=== PATIENT | female | born 1965 | race Caucasian/White ===

== ENCOUNTER 2016-06-23 10:30 | Emergency (ER) | payer OTHER ==
[2016-06-23 11:28] LABS: BASO # 0.1 K/mm3 (0.0-0.2); BASO % 0.5 % (0.0-1.0); EOS # 0.2 K/mm3 (0.0-0.50); EOS % 1.8 % (0.0-3.0); LARGE UNSTAINED CELL # 0.1 K/mm3 (0.0-0.4); LARGE UNSTAINED CELL % 0.6 % (0.0-4.0); LYMPH # 1.7 K/mm3 (1.5-4.5); LYMPH % 13.6 % (24.0-44.0); MEAN CORPUSCULAR HGB CONC 31.9 g/dl (32.0-36.5); MEAN CORPUSCULAR VOLUME 90.9 fl (80.0-96.0); MONO # 0.3 K/mm3 (0.0-0.8); MONO % 2.8 % (0.0-5.0); NEUTROPHILS # 9.9 K/mm3 (1.8-7.7); NEUTROPHILS % 80.7 % (36.0-66.0); PLATELET COUNT, AUTOMATED 387 k/mm3 (150-450); RED CELL DISTRIBUTION WIDTH 13.1 % (11.5-14.5); WHITE BLOOD COUNT 12.2 K/mm3 (4.0-10.0)
--- NOTE | 2016-06-23 11:55 | REP ---
Clinical: Acute abdominal pain. Technique: Upright view of the chest with supine and upright views of the abdomen and pelvis. Findings: Frontal upright view of the chest demonstrates blunting to the left diaphragmatic surface and costophrenic angle which may reflect small pleural effusion and atelectasis. No prior exams available for comparison. Supine and upright views of the abdomen and pelvis demonstrate nonspecific bowel gas pattern without obstruction or perforation. Surgical suture material noted in the left mid abdomen. No organomegaly. Left renal calculi cannot be excluded. Skeletal structures normal for age. Impression: Nonspecific bowel gas pattern. Cannot exclude small left pleural effusion and basilar atelectasis. Possible small left nephroliths. Signed by Gabriel Tracy MD 06/23/2016 11:47 A
[2016-06-23 12:00] LABS: ALBUMIN/GLOBULIN RATIO 1.14 (1.00-1.93); ALKALINE PHOSPHATASE 91 U/L (45-117); ALT/SGPT 41 U/L (12-78); AMYLASE 38 U/L (25-115); ANION GAP 7 MEQ/L (8-16); AST/SGOT 31 U/L (15-37); BILIRUBIN,DIRECT < 0.1 MG/DL (0.0-0.2); BILIRUBIN,TOTAL 0.3 MG/DL (0.2-1.0); BLOOD UREA NITROGEN 11 MG/DL (7-18); CALCIUM LEVEL 8.8 MG/DL (8.5-10.1); CARBON DIOXIDE LEVEL 27 MEQ/L (21-32); CHLORIDE LEVEL 110 MEQ/L (98-107); CREATININE FOR GFR 0.75 MG/DL (0.55-1.02); GLOMERULAR FILTRATION RATE > 60.0 (>51); GLUCOSE, FASTING 93 MG/DL (70-105); POTASSIUM SERUM 4.4 MEQ/L (3.5-5.1); SODIUM LEVEL 144 MEQ/L (136-145); TOTAL PROTEIN 7.5 GM/DL (6.4-8.2)
[2016-06-23] MEDS ORDERED: ISOVUE-370 76% 100ML VIAL (Q9967) As Ordered ONE (12:47)
--- NOTE | 2016-06-23 13:25 | REP ---
Clinical: Generalized acute abdominal pain. Technique: Axial contrast enhanced images from the lung bases to the pubic symphysis using 100 ml Isovue 370 intravenous contrast material with coronal and sagittal re-formations. Comparison: None. Findings: Lung bases demonstrate minimal chronic changes. Visualized heart and pericardium normal. Liver, spleen, pancreas, bilateral adrenal glands and kidneys are normal. The gallbladder is mildly distended and otherwise nonspecific. The bowel gas pattern is nonspecific and without obstruction or obvious acute inflammatory process. Postsurgical changes involving the stomach and small bowel is noted with presumed postsurgical ventral hernia/eventration. Scattered colonic diverticula noted. Normal terminal ileum and appendix identified in the right lower quadrant. Pelvis demonstrates normal bladder and age-appropriate uterus/adnexa with small intramural fibroid suggested. No pelvic fluid or ascites. Mildly prominent mesenteric lymph nodes measure up to approximately 9 mm. No discrete abdominal or pelvic mass lesion appreciated. Abdominal aorta and vasculature without aneurysm or dissection. Surrounding musculoskeletal structures demonstrate age-related degenerative changes. Impression: 1. Postsurgical changes involving the small bowel and anterior abdominal wall as well as evidence for prior gastric bypass surgery. Mesenteric lymph nodes up to 9 mm are nonspecific. 2. Mildly distended gallbladder is nonspecific. 3. No obvious acute intra-abdominal or pelvic pathology appreciated. No free fluid. No discrete mass lesion. Signed by Gabriel Tracy MD 06/23/2016 01:16 P
--- NOTE | 2016-06-23 14:47 | EDDOCDS ---
Physician Documentation [facility] Name: Amanda Davis Age: 50 yrs Sex: Female : 1965 Arrival Date: 06/23/2016 Time: 10:30 Bed I2 / M2 Private MD: Tanvir Galicia Abdul Disposition: 06/23/16 14:28 Discharged to Home/Self Care. Impression: Unspecified abdominal pain. - Condition is Stable. - Discharge Instructions: Abdominal Pain, Adult. - Medication Reconciliation, Local Pharmacy Hours form. - Follow up: Tanvir Galicia; When: Call to arrange an appointment; Reason: Continuance of care. Follow up: Davis Fajardo MD; When: As needed; Reason: Recheck today's complaints, To establish care. Follow up: Emergency Department; When: As needed; Reason: Fever > 102F, Worsening of conditions. - Problem is new. - Symptoms have improved. Historical: - Allergies: Morphine; - Home Meds: 1. tramadol 150 mg oral BP25 three times a day 2. levothyroxine 125 mcg Oral cap once daily 3. Xanax 1 mg Oral tab four times a day 4. Adderall XR 30 mg BID and 10 mg BID Oral cp24 5. Vitamin D Oral daily 6. vitamin B12 injection as needed - PMHx: Thyroid problem; Chronic Low Back Pain; ADHD; - PSHx: Gastric Bypass (2005); Bowel resection (2009); Hernia repair- Incisional; - Social history: Smoking status: Patient states was never smoker of tobacco. No barriers to communication noted, The patient speaks fluent [place], Speaks appropriately for age. - Family history: Not pertinent. - : The pt / caregiver states he / she is not on anticoagulants. Home medication list is obtained from the patient. - Exposure Risk Screening:: None identified. HOSPICE BEREAVEMENT COORDINATOR: 06/23 10:38 LMP N/A - Post-menopause kr3 Vital Signs: 10:31 BP 148 / 82; Pulse 82; Resp 18; Temp 97.8(O); Pulse Ox 100% on R/A; Weight 74.39 kg / ct3 164 lbs (M); Height 4 ft. 11 in. (149.86 cm) (R); Pain 6/10; 12:06 BP 148 / 71; Pulse 76; Resp 18; Temp 99.3(TE); Pulse Ox 98% on R/A; Pain 6/10; ar3 14:09 BP 116 / 68; Pulse 82; Resp 18; Temp 97.5(O); Pulse Ox 97% on R/A; Pain 7/10; ct3 14:33 BP 107 / 50; Pulse 77; Resp 18; Temp 98.4; Pulse Ox 97% ; Pain 5/10; jam1 10:31 Body Mass Index 33.12 (74.39 kg, 149.86 cm) ct3 MDM: 11:00 [facility] Payment Agreement was scanned into [employer] and attached to record. jp5 11:00 Financial registration complete. jp5 11:01 NOTHING BY MOUTH+DIET ordered. EDMS 11:02 Amylase Ordered. EDMS 11:02 Basic Metabolic Profile Ordered. EDMS 11:02 CBC with Diff Ordered. EDMS 11:02 Lipase Ordered. EDMS 11:02 Liver Profile Ordered. EDMS 11:02 Lactic Acid (Alexander tube on ice) Ordered. EDMS 11:02 Abdomen, Flat\E\Upright,PA Chest Ordered. EDMS 12:08 Basic Metabolic Profile Reviewed. ar2 12:08 CBC with Diff Reviewed. ar2 12:08 Amylase Reviewed. ar2 12:08 Lipase Reviewed. ar2 12:08 Liver Profile Reviewed. ar2 12:13 Lactic Acid (Alexander tube on ice) Reviewed. ar2 12:13 IV Saline Lock ordered. ar2 12:14 NS 0.9% 1000 ml IV at bolus once ordered. ar2 12:41 CT ABD & PELVIS: IV Contrast Only Ordered. EDMS 14:04 Vital Signs ordered. ar2 Administered Medications: 12:35 Drug: NS 0.9% 1000 ml [sodium chloride 0.9 % intravenous solution] Route: IV; Rate: kpj bolus; Site: right wrist; 14:46 Follow up: IV Status: Completed infusion; Infusion discontinued kpj Signatures: Dispatcher [employer] EDYusra Pena RN RN kpj Robie, Kathleen, RN RN kr3 Ravin Queen, PAPatty PABalwinderC ar2 [employer] jp5 The chart was reviewed and I authenticate all verbal orders and agree with the evaluation and treatment provided.Attachments: 11:00 [facility] Payment Agreement jp5 MTDD
--- NOTE | 2016-06-23 14:47 | EDDOCDS ---
Nurse's Notes [facility] Name: Amanda Davis Age: 50 yrs Sex: Female : 1965 Arrival Date: 06/23/2016 Time: 10:30 Bed I2 / M2 Private MD: Tanvir Galicia Abdul Diagnosis: Unspecified abdominal pain Presentation: 06/23 10:34 Presenting complaint: Patient states: abdominal pain for several days on and off. Had kr3 bowel movement today, but not yesterday. Feeling weak today. Risk factors: the patient reports no vaginal bleeding. Adult Sepsis Screening: The patient does not have new or worsening altered mentation. Patient's respiratory rate is less than 22. Systolic blood pressure is greater than 100. Patient has a qSOFA score of 0- Negative Sepsis Screen. Suicide/Homicide risk assessment- the patient denies having any suicidal and/or homicidal ideations and does not present with any other emotional, behavioral or mental health complaints. Status: Patient is not a service delivery supervisor or dependent. Transition of care: patient was not received from another setting of care. 10:34 Acuity: RAMY Level 3 kr3 10:34 Method Of Arrival: Walkin/Carried/Asstd kr3 Triage Assessment: 10:38 General: Appears uncomfortable, Behavior is cooperative. Pain: Location: abdomen Pain kr3 currently is 5 out of 10 on a pain scale. At worst was 7 out of 10 on a pain scale. Quality of pain is described as gas pain. HIV screening NA for this visit Offered previously. GI: Denies nausea, vomiting. Derm: Skin is normal. TALENT DEVELOPMENT SPECIALIST: 10:38 LMP N/A - Post-menopause kr3 Historical: - Allergies: Morphine; - Home Meds: 1. tramadol 150 mg oral BP25 three times a day 2. levothyroxine 125 mcg Oral cap once daily 3. Xanax 1 mg Oral tab four times a day 4. Adderall XR 30 mg BID and 10 mg BID Oral cp24 5. Vitamin D Oral daily 6. vitamin B12 injection as needed - PMHx: Thyroid problem; Chronic Low Back Pain; ADHD; - PSHx: Gastric Bypass (2005); Bowel resection (2009); Hernia repair- Incisional; - Social history: Smoking status: Patient states was never smoker of tobacco. No barriers to communication noted, The patient speaks fluent Lao, Speaks appropriately for age. - Family history: Not pertinent. - : The pt / caregiver states he / she is not on anticoagulants. Home medication list is obtained from the patient. - Exposure Risk Screening:: None identified. Screenin:30 Screening information is obtained from the patient. Fall risk: No risks identified. [facility] Assistance ADL's: requires no assistance with activities of daily living. Abuse/DV Screen: The patient / caregiver reports he/she is: not in a situation that causes fear, pain or injury. Nutritional screening: No deficits noted. Advance Directives: Currently, there is no health care proxy. There is no active DNR order. There is no living will. There is no Power of Medical Technologist Chemistry. Advance directive information has not previously been placed in an [facility] medical record. Further advance directive information is declined. home support is adequate. Assessment: 12:40 General: Appears in no apparent distress, well nourished, well groomed, Behavior is kpj appropriate for age, pleasant. Pain: Location: low back area and upper abdomen Pain currently is 6 out of 10 on a pain scale. Quality of pain is described as aching. Neurological: Level of Consciousness is awake, alert, Oriented to person, place, time. Respiratory: Airway is patent Respiratory effort is even, unlabored, Respiratory pattern is regular, symmetrical, Breath sounds are clear bilaterally. GI: Abdomen is obese, Bowel sounds present X 4 quads. Abd is soft X 4 quads Abd is tender to palpation in right upper quadrant and left upper quadrant. Derm: Skin is pink, warm & dry. Musculoskeletal: Circulation, motion, and sensation intact Capillary refill < 3 seconds in bilateral toes Range of motion intact in all extremities. Reports pain in low back area. 13:30 General: Appears comfortable, Behavior is appropriate for age. Pain: Location: low back kpj area and left upper quadrant and right upper quadrant Pain currently is 6 out of 10 on a pain scale. Neurological: Level of Consciousness is awake, alert. Respiratory: Airway is patent Respiratory effort is even, unlabored. GI: Reports upper abdominal pain, Pain is 6 out of 10 on a pain scale. Denies nausea, vomiting. Derm: Skin is pink, warm & dry. 14:43 General: Appears in no apparent distress, comfortable, Behavior is appropriate for age. kpj General: states abdominal pain has resolved,lower back still aches.. Pain: Location: low back area Pain currently is 6 out of 10 on a pain scale. Neurological: Level of Consciousness is awake, alert, Oriented to person, place, time. Respiratory: Airway is patent Respiratory effort is even, unlabored. GI: Denies nausea, vomiting, pain. Derm: Skin is pink, warm & dry. Vital Signs: 10:31 BP 148 / 82; Pulse 82; Resp 18; Temp 97.8(O); Pulse Ox 100% on R/A; Weight 74.39 kg ct3 (M); Height 4 ft. 11 in. (149.86 cm) (R); Pain 6/10; 12:06 BP 148 / 71; Pulse 76; Resp 18; Temp 99.3(TE); Pulse Ox 98% on R/A; Pain 6/10; ar3 14:09 BP 116 / 68; Pulse 82; Resp 18; Temp 97.5(O); Pulse Ox 97% on R/A; Pain 7/10; ct3 14:33 BP 107 / 50; Pulse 77; Resp 18; Temp 98.4; Pulse Ox 97% ; Pain 5/10; jam1 10:31 Body Mass Index 33.12 (74.39 kg, 149.86 cm) ct3 Vitals: 10:31 Log In Time: June 23, 2016 at 10:29. ct3 ED Course: 10:31 Patient visited by Vikki Blake PCA. ct3 10:31 Tanvir Galicia is Private Physician. ct3 10:31 Patient moved to Waiting ct3 10:32 Patient moved to Pre RCE ct3 10:35 Triage Initiated kr3 10:38 Patient moved to Triage 2 srm 10:42 [facility] ar2 10:42 Phong Bhatt MD is Attending Physician. ar2 10:42 Patient visited by Ravin Queen PA-C. ar2 11:00 [facility] was scanned into [employer] and attached to record. jp5 11:20 Patient moved to TR1 cj 11:22 Lactic Acid (Alexander tube on ice) Sent. ar3 11:22 Amylase Sent. ar3 11:22 Basic Metabolic Profile Sent. ar3 11:22 CBC with Diff Sent. ar3 11:22 Lipase Sent. ar3 11:22 Liver Profile Sent. ar3 12:01 Patient moved to PR1 / 25 ar3 12:06 Patient visited by Ashli Martin PCA. ar3 12:15 Patient moved to I2 / M2 ar3 12:30 Abdomen, Flat\E\Upright,PA Chest Returned. EDMS 12:35 Resting quietly. kpj 12:35 Inserted saline lock: 20 gauge in right wrist, tolerated well. kpj 12:[address] Scan. kpj 12:40 The patient / caregiver is instructed regarding the plan of care and ED course. Patient kpj has correct armband on for positive identification. Placed in gown. Call light in reach. Side rails up X2. Diet: Patient is NPO. 13:30 Resting quietly. kpj 13:30 IV is patent, is intact, is free of redness or swelling. solution is infusing as kpj ordered. 13:53 Patient visited by Faina Sood PCA. jam1 13:53 CT ABD & PELVIS: IV Contrast Only Returned. EDMS 14:10 Patient visited by Vikki Blake, CANDIDO. ct3 14:28 Tanvir Galicia is Referral Physician. ar2 14:28 Davis Fajardo MD is Referral Physician. ar2 14:43 Resting quietly. kpj 14:43 The patient / caregiver is instructed regarding the plan of care and ED course. kpj 14:43 Discontinued lock intact, bleeding controlled, pressure dressing applied, No kpj redness/swelling at site. No procedures done that require assistance. Administered Medications: 12:35 Drug: NS 0.9% 1000 ml [sodium chloride 0.9 % intravenous solution] Route: IV; Rate: kpj bolus; Site: right wrist; 14:46 Follow up: IV Status: Completed infusion; Infusion discontinued kpj Intake: 14:43 IV: 1000.00ml (NS); Total: 1000.00ml. kpj Order Results: Lab Order: Amylase; SPEC'M 06/23/16 11:19 Test: AMYLASE; Value: 38; Range: 25-115; Units: U/L; Status: F Lab Order: Basic Metabolic Profile; SPEC'M 06/23/16 11:19 Test: GLUCOSE, FASTING; Value: 93; Range: 70-105; Units: MG/DL; Status: F Test: BLOOD UREA NITROGEN; Value: 11; Range: 7-18; Units: MG/DL; Status: F Test: CREATININE FOR GFR; Value: 0.75; Range: 0.55-1.02; Units: MG/DL; Status: F Test: GLOMERULAR FILTRATION RATE; Value: > 60.0; Range: >51; Status: F Test: SODIUM LEVEL; Value: 144; Range: 136-145; Units: MEQ/L; Status: F Test: POTASSIUM SERUM; Value: 4.4; Range: 3.5-5.1; Units: MEQ/L; Status: F Test: CHLORIDE LEVEL; Value: 110; Range: 98-107; Abnormal: Above high normal; Units: MEQ/L; Status: F Test: CARBON DIOXIDE LEVEL; Value: 27; Range: 21-32; Units: MEQ/L; Status: F Test: ANION GAP; Value: 7; Range: 8-16; Abnormal: Below low normal; Units: MEQ/L; Status: F Test: CALCIUM LEVEL; Value: 8.8; Range: 8.5-10.1; Units: MG/DL; Status: F Test Note: ; Units are mL/min/1.73 m2 Chronic Kidney Disease Staging per NKF: Stage I & II GFR >=60 Normal to Mildly Decreased Stage III GFR 30-59 Moderately Decreased Stage IV GFR 15-29 Severely Decreased Stage V GFR <15 Very Little GFR Left ESRD GFR <15 on ADMINISTRATIVE EXECUTIVE Lab Order: CBC with Diff; SPEC'M 06/23/16 11:19 Test: WHITE BLOOD COUNT; Value: 12.2; Range: 4.0-10.0; Abnormal: Above high normal; Units: K/mm3; Status: F Test: RED BLOOD COUNT; Value: 5.26; Range: 4.00-5.40; Units: M/mm3; Status: F Test: HEMOGLOBIN; Value: 15.2; Range: 12.0-16.0; Units: g/dl; Status: F Test: HEMATOCRIT; Value: 47.9; Range: 36.0-47.0; Abnormal: Above high normal; Units: %; Status: F Test: MEAN CORPUSCULAR VOLUME; Value: 90.9; Range: 80.0-96.0; Units: fl; Status: F Test: MEAN CORPUSCULAR HEMOGLOBIN; Value: 29.0; Range: 27.0-33.0; Units: pg; Status: F Test: MEAN CORPUSCULAR HGB CONC; Value: 31.9; Range: 32.0-36.5; Abnormal: Below low normal; Units: g/dl; Status: F Test: RED CELL DISTRIBUTION WIDTH; Value: 13.1; Range: 11.5-14.5; Units: %; Status: F Test: PLATELET COUNT, AUTOMATED; Value: 387; Range: 150-450; Units: k/mm3; Status: F Test: NEUTROPHILS %; Value: 80.7; Range: 36.0-66.0; Abnormal: Above high normal; Units: %; Status: F Test: LYMPH %; Value: 13.6; Range: 24.0-44.0; Abnormal: Below low normal; Units: %; Status: F Test: MONO %; Value: 2.8; Range: 0.0-5.0; Units: %; Status: F Test: EOS %; Value: 1.8; Range: 0.0-3.0; Units: %; Status: F Test: BASO %; Value: 0.5; Range: 0.0-1.0; Units: %; Status: F Test: LARGE UNSTAINED CELL %; Value: 0.6; Range: 0.0-4.0; Units: %; Status: F Test: NEUTROPHILS #; Value: 9.9; Range: 1.8-7.7; Abnormal: Above high normal; Units: K/mm3; Status: F Test: LYMPH #; Value: 1.7; Range: 1.5-4.5; Units: K/mm3; Status: F Test: MONO #; Value: 0.3; Range: 0.0-0.8; Units: K/mm3; Status: F Test: EOS #; Value: 0.2; Range: 0.0-0.50; Units: K/mm3; Status: F Test: BASO #; Value: 0.1; Range: 0.0-0.2; Units: K/mm3; Status: F Test: LARGE UNSTAINED CELL #; Value: 0.1; Range: 0.0-0.4; Units: K/mm3; Status: F Lab Order: Lipase; SPEC'M 06/23/16 11:19 Test: LIPASE; Value: 166; Range: 73-393; Units: U/L; Status: F Lab Order: Liver Profile; SPEC'M 06/23/16 11:19 Test: AST/SGOT; Value: 31; Range: 15-37; Units: U/L; Status: F Test: ALT/SGPT; Value: 41; Range: 12-78; Units: U/L; Status: F Test: ALKALINE PHOSPHATASE; Value: 91; Range: 45-117; Units: U/L; Status: F Test: BILIRUBIN,TOTAL; Value: 0.3; Range: 0.2-1.0; Units: MG/DL; Status: F Test: BILIRUBIN,DIRECT; Value: < 0.1; Range: 0.0-0.2; Units: MG/DL; Status: F Test: TOTAL PROTEIN; Value: 7.5; Range: 6.4-8.2; Units: GM/DL; Status: F Test: ALBUMIN; Value: 4.0; Range: 3.2-5.2; Units: GM/DL; Status: F Test: ALBUMIN/GLOBULIN RATIO; Value: 1.14; Range: 1.00-1.93; Status: F Lab Order: Lactic Acid (Alexander tube on ice); SPEC'M 06/23/16 11:19 Test: LACTIC ACID SEPSIS PROTOCOL; Value: 2.3; Range: 0.4-2.0; Abnormal: Above upper panic limits; Units: MMOL/L; Status: F Radiology Order: Abdomen, Flat\E\Upright,PA Chest Test: Abdomen, Flat\E\Upright,PA Chest REASON FOR EXAMINATION: abdominal pain r/o obstruction; Clinical: Acute abdominal pain.; ; Technique: Upright view of the chest with supine and upright views of the; abdomen and pelvis.; ; Findings: Frontal upright view of the chest demonstrates blunting to the left; diaphragmatic surface and costophrenic angle which may reflect small pleural; effusion and atelectasis. No prior exams available for comparison. Supine and; upright views of the abdomen and pelvis demonstrate nonspecific bowel gas pattern; without obstruction or perforation. Surgical suture material noted in the left; mid abdomen. No organomegaly. Left renal calculi cannot be excluded. Skeletal; structures normal for age.; ; Impression:; Nonspecific bowel gas pattern.; Cannot exclude small left pleural effusion and basilar atelectasis.; Possible small left nephroliths.; ; ; Signed by; Gabriel Tracy MD 06/23/2016 11:47 A; Radiology Order: CT ABD & PELVIS: IV Contrast Only Test: CT ABD & PELVIS: IV Contrast Only REASON FOR EXAMINATION: + lactate, hx bypass;Abd. Pain - Generalized, Nn-focal Exa; Clinical: Generalized acute abdominal pain.; ; Technique: Axial contrast enhanced images from the lung bases to the pubic; symphysis using 100 ml Isovue 370 intravenous contrast material with coronal and; sagittal re-formations.; ; Comparison: None.; ; Findings:; Lung bases demonstrate minimal chronic changes. Visualized heart and pericardium; normal.; ; Liver, spleen, pancreas, bilateral adrenal glands and kidneys are normal. The; gallbladder is mildly distended and otherwise nonspecific. The bowel gas pattern; is nonspecific and without obstruction or obvious acute inflammatory process.; Postsurgical changes involving the stomach and small bowel is noted with presumed; postsurgical ventral hernia/eventration. Scattered colonic diverticula noted.; Normal terminal ileum and appendix identified in the right lower quadrant.; Pelvis demonstrates normal bladder and age-appropriate uterus/adnexa with small; intramural fibroid suggested. No pelvic fluid or ascites. Mildly prominent; mesenteric lymph nodes measure up to approximately 9 mm. No discrete abdominal; or pelvic mass lesion appreciated. Abdominal aorta and vasculature without; aneurysm or dissection. Surrounding musculoskeletal structures demonstrate; age-related degenerative changes.; ; Impression:; 1. Postsurgical changes involving the small bowel and anterior abdominal wall as; well as evidence for prior gastric bypass surgery. Mesenteric lymph nodes up to 9; mm are nonspecific.; 2. Mildly distended gallbladder is nonspecific.; 3. No obvious acute intra-abdominal or pelvic pathology appreciated. No free; fluid. No discrete mass lesion.; ; ; Signed by; Gabriel Tracy MD 06/23/2016 01:16 P; Outcome: 14:28 Discharge ordered by Provider. ar2 14:45 Discharge Assessment: Patient awake, alert and oriented x 3. No cognitive and/or kpj functional deficits noted. Patient verbalized understanding of disposition instructions. patient administered narcotics - no. The following High Risk Discharge criteria are identified: None. Discharged to home ambulatory, with friend. Condition: stable. Discharge instructions given to patient, Instructed on discharge instructions, follow up and referral plans. Demonstrated understanding of instructions, Pt was receptive of discharge instructions/ teaching. CT Study completed. Property sent home with patient. 14:46 Patient left the ED. edenilson Signatures: Dispatcher [employer] EDYusra Pena, Annie Blas RN RN RN [facility] Faina Sood, WEB DEVELOPER PROGRAMMER WEB DEVELOPER PROGRAMMER jam1 Astrid VickersRN RN kr3 Ravin Queen PA-C PAPatty ar2 Ashli Martin, WEB DEVELOPER PROGRAMMER WEB DEVELOPER PROGRAMMER ar3 Vikki Blake, WEB DEVELOPER PROGRAMMER WEB DEVELOPER PROGRAMMER ct3 Faina HugoRN SHAHANA [facility] [employer] jp5 MTDD
--- NOTE | 2016-06-25 15:46 | EDDOCDS ---
Physician Documentation [facility] Name: Amanda Davis Age: 50 yrs Sex: Female : 1965 Arrival Date: 06/23/2016 Time: 10:30 Bed I2 / M2 Private MD: Tanvir Galicia Abdul Disposition: 06/23/16 14:28 Discharged to Home/Self Care. Impression: Unspecified abdominal pain. - Condition is Stable. - Discharge Instructions: Abdominal Pain, Adult. - Medication Reconciliation, Local Pharmacy Hours form. - Follow up: aTnvir Galicia; When: Call to arrange an appointment; Reason: Continuance of care. Follow up: Davis Fajardo MD; When: As needed; Reason: Recheck today's complaints, To establish care. Follow up: Emergency Department; When: As needed; Reason: Fever > 102F, Worsening of conditions. - Problem is new. - Symptoms have improved. Historical: - Allergies: Morphine; - Home Meds: 1. tramadol 150 mg oral BP25 three times a day 2. levothyroxine 125 mcg Oral cap once daily 3. Xanax 1 mg Oral tab four times a day 4. Adderall XR 30 mg BID and 10 mg BID Oral cp24 5. Vitamin D Oral daily 6. vitamin B12 injection as needed - PMHx: Thyroid problem; Chronic Low Back Pain; ADHD; - PSHx: Gastric Bypass (2005); Bowel resection (2009); Hernia repair- Incisional; - Social history: Smoking status: Patient states was never smoker of tobacco. No barriers to communication noted, The patient speaks fluent Panamanian, Speaks appropriately for age. - Family history: Not pertinent. - : The pt / caregiver states he / she is not on anticoagulants. Home medication list is obtained from the patient. - Exposure Risk Screening:: None identified. 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 11 in. (149.86 cm) (R); Pain 6/10; 12:06 BP 148 / 71; Pulse 76; Resp 18; Temp 99.3(TE); Pulse Ox 98% on R/A; Pain 6/10; ar3 14:09 BP 116 / 68; Pulse 82; Resp 18; Temp 97.5(O); Pulse Ox 97% on R/A; Pain 7/10; ct3 14:33 BP 107 / 50; Pulse 77; Resp 18; Temp 98.4; Pulse Ox 97% ; Pain 5/10; jam1 10:31 Body Mass Index 33.12 (74.39 kg, 149.86 cm) ct3 MDM: 11:00 [facility] Payment Agreement was scanned into Modusly and attached to record. jp5 11:00 Financial registration complete. jp5 11:01 NOTHING BY MOUTH+DIET ordered. EDMS 11:02 Amylase Ordered. EDMS 11:02 Basic Metabolic Profile Ordered. EDMS 11:02 CBC with Diff Ordered. EDMS 11:02 Lipase Ordered. EDMS 11:02 Liver Profile Ordered. EDMS 11:02 Lactic Acid (Alexander tube on ice) Ordered. EDMS 11:02 Abdomen, Flat\E\Upright,PA Chest Ordered. EDMS 12:08 Basic Metabolic Profile Reviewed. ar2 12:08 CBC with Diff Reviewed. ar2 12:08 Amylase Reviewed. ar2 12:08 Lipase Reviewed. ar2 12:08 Liver Profile Reviewed. ar2 12:13 Lactic Acid (Alexander tube on ice) Reviewed. ar2 12:13 IV Saline Lock ordered. ar2 12:14 NS 0.9% 1000 ml IV at bolus once ordered. ar2 12:41 CT ABD & PELVIS: IV Contrast Only Ordered. EDMS 14:04 Vital Signs ordered. ar2 06/24 09:56 T-Sheet-- Draft Copy was scanned into Modusly and attached to record. klr 14:19 Radiology Report was scanned into Modusly and attached to record. gb Administered Medications: 06/23 12:35 Drug: NS 0.9% 1000 ml [sodium chloride 0.9 % intravenous solution] Route: IV; Rate: kpj bolus; Site: right wrist; 14:46 Follow up: IV Status: Completed infusion; Infusion discontinued kpj Signatures: Dispatcher MedHost EDMS Yusra Chairez RN RN kpj Barnhardt, Gloria, Trevor Reg Astrid Bird RN RN kr3 Ravin Queen PA-C PA-C ar2 Seven Corea jp5 Risa Hernandez The chart was reviewed and I authenticate all verbal orders and agree with the evaluation and treatment provided.Attachments: 11:00 [facility] Payment Agreement jp5 06/24 09:56 T-Sheet-- Draft Copy klr Chart Complete MTDD
--- NOTE | 2016-06-25 15:46 | EDDOCDS ---
Physician Documentation [facility] Name: Amanda Davis Age: 50 yrs Sex: Female : 1965 Arrival Date: 06/23/2016 Time: 10:30 Bed I2 / M2 Private MD: Tanvir Galicia Abdul Disposition: 06/23/16 14:28 Discharged to Home/Self Care. Impression: Unspecified abdominal pain. - Condition is Stable. - Discharge Instructions: Abdominal Pain, Adult. - Medication Reconciliation, Local Pharmacy Hours form. - Follow up: Tanvir Galicia; When: Call to arrange an appointment; Reason: Continuance of care. Follow up: Davis Fajardo MD; When: As needed; Reason: Recheck today's complaints, To establish care. Follow up: Emergency Department; When: As needed; Reason: Fever > 102F, Worsening of conditions. - Problem is new. - Symptoms have improved. Historical: - Allergies: Morphine; - Home Meds: 1. tramadol 150 mg oral BP25 three times a day 2. levothyroxine 125 mcg Oral cap once daily 3. Xanax 1 mg Oral tab four times a day 4. Adderall XR 30 mg BID and 10 mg BID Oral cp24 5. Vitamin D Oral daily 6. vitamin B12 injection as needed - PMHx: Thyroid problem; Chronic Low Back Pain; ADHD; - PSHx: Gastric Bypass (2005); Bowel resection (2009); Hernia repair- Incisional; - Social history: Smoking status: Patient states was never smoker of tobacco. No barriers to communication noted, The patient speaks fluent Togolese, Speaks appropriately for age. - Family history: Not pertinent. - : The pt / caregiver states he / she is not on anticoagulants. Home medication list is obtained from the patient. - Exposure Risk Screening:: None identified. 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 11 in. (149.86 cm) (R); Pain 6/10; 12:06 BP 148 / 71; Pulse 76; Resp 18; Temp 99.3(TE); Pulse Ox 98% on R/A; Pain 6/10; ar3 14:09 BP 116 / 68; Pulse 82; Resp 18; Temp 97.5(O); Pulse Ox 97% on R/A; Pain 7/10; ct3 14:33 BP 107 / 50; Pulse 77; Resp 18; Temp 98.4; Pulse Ox 97% ; Pain 5/10; jam1 10:31 Body Mass Index 33.12 (74.39 kg, 149.86 cm) ct3 MDM: 11:00 [facility] Payment Agreement was scanned into TurnTide and attached to record. jp5 11:00 Financial registration complete. jp5 11:01 NOTHING BY MOUTH+DIET ordered. EDMS 11:02 Amylase Ordered. EDMS 11:02 Basic Metabolic Profile Ordered. EDMS 11:02 CBC with Diff Ordered. EDMS 11:02 Lipase Ordered. EDMS 11:02 Liver Profile Ordered. EDMS 11:02 Lactic Acid (Alexander tube on ice) Ordered. EDMS 11:02 Abdomen, Flat\E\Upright,PA Chest Ordered. EDMS 12:08 Basic Metabolic Profile Reviewed. ar2 12:08 CBC with Diff Reviewed. ar2 12:08 Amylase Reviewed. ar2 12:08 Lipase Reviewed. ar2 12:08 Liver Profile Reviewed. ar2 12:13 Lactic Acid (Alexander tube on ice) Reviewed. ar2 12:13 IV Saline Lock ordered. ar2 12:14 NS 0.9% 1000 ml IV at bolus once ordered. ar2 12:41 CT ABD & PELVIS: IV Contrast Only Ordered. EDMS 14:04 Vital Signs ordered. ar2 06/24 09:56 T-Sheet-- Draft Copy was scanned into TurnTide and attached to record. klr 14:19 Radiology Report was scanned into TurnTide and attached to record. gb Administered Medications: 06/23 12:35 Drug: NS 0.9% 1000 ml [sodium chloride 0.9 % intravenous solution] Route: IV; Rate: kpj bolus; Site: right wrist; 14:46 Follow up: IV Status: Completed infusion; Infusion discontinued kpj Signatures: Dispatcher MedHost EDMS Yusra Chairez RN RN kpj Barnhardt, Gloria, Trevor Reg Astrid Bird RN RN kr3 Ravin Queen PA-C PA-C ar2 Seven Corea jp5 Risa Hernandez The chart was reviewed and I authenticate all verbal orders and agree with the evaluation and treatment provided.Attachments: 11:00 [facility] Payment Agreement jp5 06/24 09:56 T-Sheet-- Draft Copy klr Chart Complete MTDD
--- NOTE | 2016-06-25 15:47 | EDDOCDS ---
Nurse's Notes [facility] Name: Amanda Davis Age: 50 yrs Sex: Female : 1965 Arrival Date: 06/23/2016 Time: 10:30 Bed I2 / M2 Private MD: Tanvir Galicia Abdul Diagnosis: Unspecified abdominal pain Presentation: 06/23 10:34 Presenting complaint: Patient states: abdominal pain for several days on and off. Had kr3 bowel movement today, but not yesterday. Feeling weak today. Risk factors: the patient reports no vaginal bleeding. Adult Sepsis Screening: The patient does not have new or worsening altered mentation. Patient's respiratory rate is less than 22. Systolic blood pressure is greater than 100. Patient has a qSOFA score of 0- Negative Sepsis Screen. Suicide/Homicide risk assessment- the patient denies having any suicidal and/or homicidal ideations and does not present with any other emotional, behavioral or mental health complaints. Status: Patient is not a industrial service technician or dependent. Transition of care: patient was not received from another setting of care. 10:34 Acuity: RAMY Level 3 kr3 10:34 Method Of Arrival: Walkin/Carried/Asstd kr3 Triage Assessment: 10:38 General: Appears uncomfortable, Behavior is cooperative. Pain: Location: abdomen Pain kr3 currently is 5 out of 10 on a pain scale. At worst was 7 out of 10 on a pain scale. Quality of pain is described as gas pain. HIV screening NA for this visit Offered previously. GI: Denies nausea, vomiting. Derm: Skin is normal. 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 tramadol 150 mg oral BP25 three times a day 2. levothyroxine 125 mcg Oral cap once daily 3. Xanax 1 mg Oral tab four times a day 4. Adderall XR 30 mg BID and 10 mg BID Oral cp24 5. Vitamin D Oral daily 6. vitamin B12 injection as needed - PMHx: Thyroid problem; Chronic Low Back Pain; ADHD; - PSHx: Gastric Bypass (2005); Bowel resection (2009); Hernia repair- Incisional; - Social history: Smoking status: Patient states was never smoker of tobacco. No barriers to communication noted, The patient speaks fluent Portuguese, Speaks appropriately for age. - Family history: Not pertinent. - : The pt / caregiver states he / she is not on anticoagulants. Home medication list is obtained from the patient. - Exposure Risk Screening:: None identified. Screenin:30 Screening information is obtained from the patient. Fall risk: No risks identified. [facility] Assistance ADL's: requires no assistance with activities of daily living. Abuse/DV Screen: The patient / caregiver reports he/she is: not in a situation that causes fear, pain or injury. Nutritional screening: No deficits noted. Advance Directives: Currently, there is no health care proxy. There is no active DNR order. There is no living will. There is no Power of Auto Fleet Manager. Advance directive information has not previously been placed in an [facility] medical record. Further advance directive information is declined. home support is adequate. Assessment: 12:40 General: Appears in no apparent distress, well nourished, well groomed, Behavior is kpj appropriate for age, pleasant. Pain: Location: low back area and upper abdomen Pain currently is 6 out of 10 on a pain scale. Quality of pain is described as aching. Neurological: Level of Consciousness is awake, alert, Oriented to person, place, time. Respiratory: Airway is patent Respiratory effort is even, unlabored, Respiratory pattern is regular, symmetrical, Breath sounds are clear bilaterally. GI: Abdomen is obese, Bowel sounds present X 4 quads. Abd is soft X 4 quads Abd is tender to palpation in right upper quadrant and left upper quadrant. Derm: Skin is pink, warm & dry. Musculoskeletal: Circulation, motion, and sensation intact Capillary refill < 3 seconds in bilateral toes Range of motion intact in all extremities. Reports pain in low back area. 13:30 General: Appears comfortable, Behavior is appropriate for age. Pain: Location: low back kpj area and left upper quadrant and right upper quadrant Pain currently is 6 out of 10 on a pain scale. Neurological: Level of Consciousness is awake, alert. Respiratory: Airway is patent Respiratory effort is even, unlabored. GI: Reports upper abdominal pain, Pain is 6 out of 10 on a pain scale. Denies nausea, vomiting. Derm: Skin is pink, warm & dry. 14:43 General: Appears in no apparent distress, comfortable, Behavior is appropriate for age. kpj General: states abdominal pain has resolved,lower back still aches.. Pain: Location: low back area Pain currently is 6 out of 10 on a pain scale. Neurological: Level of Consciousness is awake, alert, Oriented to person, place, time. Respiratory: Airway is patent Respiratory effort is even, unlabored. GI: Denies nausea, vomiting, pain. Derm: Skin is pink, warm & dry. Vital Signs: 10:31 BP 148 / 82; Pulse 82; Resp 18; Temp 97.8(O); Pulse Ox 100% on R/A; Weight 74.39 kg ct3 (M); Height 4 ft. 11 in. (149.86 cm) (R); Pain 6/10; 12:06 BP 148 / 71; Pulse 76; Resp 18; Temp 99.3(TE); Pulse Ox 98% on R/A; Pain 6/10; ar3 14:09 BP 116 / 68; Pulse 82; Resp 18; Temp 97.5(O); Pulse Ox 97% on R/A; Pain 7/10; ct3 14:33 BP 107 / 50; Pulse 77; Resp 18; Temp 98.4; Pulse Ox 97% ; Pain 5/10; jam1 10:31 Body Mass Index 33.12 (74.39 kg, 149.86 cm) ct3 Vitals: 10:31 Log In Time: June 23, 2016 at 10:29. ct3 ED Course: 10:31 Patient visited by Vikki Blake PCA. ct3 10:31 Tanvir Galicia is Private Physician. ct3 10:31 Patient moved to Waiting ct3 10:32 Patient moved to Pre RCE ct3 10:35 Triage Initiated kr3 10:38 Patient moved to Triage 2 srm 10:42 [facility] ar2 10:42 Phong Bhatt MD is Attending Physician. ar2 10:42 Patient visited by Ravin Queen PA-C. ar2 11:00 [facility] Payment Agreement was scanned into Angelantoni and attached to record. jp5 11:20 Patient moved to TR1 cj 11:22 Lactic Acid (Alexander tube on ice) Sent. ar3 11:22 Amylase Sent. ar3 11:22 Basic Metabolic Profile Sent. ar3 11:22 CBC with Diff Sent. ar3 11:22 Lipase Sent. ar3 11:22 Liver Profile Sent. ar3 12:01 Patient moved to PR1 / 25 ar3 12:06 Patient visited by Ashli Martin PCA. ar3 12:15 Patient moved to I2 / M2 ar3 12:30 Abdomen, Flat\E\Upright,PA Chest Returned. EDMS 12:35 Resting quietly. kpj 12:35 Inserted saline lock: 20 gauge in right wrist, tolerated well. kpj 12:[address] Scan. kpj 12:40 The patient / caregiver is instructed regarding the plan of care and ED course. Patient kpj has correct armband on for positive identification. Placed in gown. Call light in reach. Side rails up X2. Diet: Patient is NPO. 13:30 Resting quietly. kpj 13:30 IV is patent, is intact, is free of redness or swelling. solution is infusing as kpj ordered. 13:53 Patient visited by aFina Sood PCA. jam1 13:53 CT ABD & PELVIS: IV Contrast Only Returned. EDMS 14:10 Patient visited by Vikki Blake, CANDIDO. ct3 14:28 Tanvir Galicia is Referral Physician. ar2 14:28 Davis Fajardo MD is Referral Physician. ar2 14:43 Resting quietly. kpj 14:43 The patient / caregiver is instructed regarding the plan of care and ED course. kpj 14:43 Discontinued lock intact, bleeding controlled, pressure dressing applied, No kpj redness/swelling at site. No procedures done that require assistance. 06/24 09:56 T-Sheet-- Draft Copy was scanned into Angelantoni and attached to record. klr 14:19 Radiology Report was scanned into Angelantoni and attached to record. gb Administered Medications: 06/23 12:35 Drug: NS 0.9% 1000 ml [sodium chloride 0.9 % intravenous solution] Route: IV; Rate: kpj bolus; Site: right wrist; 14:46 Follow up: IV Status: Completed infusion; Infusion discontinued kpj Intake: 14:43 IV: 1000.00ml (NS); Total: 1000.00ml. kpj Order Results: Lab Order: Amylase; SPEC'M 06/23/16 11:19 Test: AMYLASE; Value: 38; Range: 25-115; Units: U/L; Status: F Lab Order: Basic Metabolic Profile; SPEC'M 06/23/16 11:19 Test: GLUCOSE, FASTING; Value: 93; Range: 70-105; Units: MG/DL; Status: F Test: BLOOD UREA NITROGEN; Value: 11; Range: 7-18; Units: MG/DL; Status: F Test: CREATININE FOR GFR; Value: 0.75; Range: 0.55-1.02; Units: MG/DL; Status: F Test: GLOMERULAR FILTRATION RATE; Value: > 60.0; Range: >51; Status: F Test: SODIUM LEVEL; Value: 144; Range: 136-145; Units: MEQ/L; Status: F Test: POTASSIUM SERUM; Value: 4.4; Range: 3.5-5.1; Units: MEQ/L; Status: F Test: CHLORIDE LEVEL; Value: 110; Range: 98-107; Abnormal: Above high normal; Units: MEQ/L; Status: F Test: CARBON DIOXIDE LEVEL; Value: 27; Range: 21-32; Units: MEQ/L; Status: F Test: ANION GAP; Value: 7; Range: 8-16; Abnormal: Below low normal; Units: MEQ/L; Status: F Test: CALCIUM LEVEL; Value: 8.8; Range: 8.5-10.1; Units: MG/DL; Status: F Test Note: ; Units are mL/min/1.73 m2 Chronic Kidney Disease Staging per NKF: Stage I & II GFR >=60 Normal to Mildly Decreased Stage III GFR 30-59 Moderately Decreased Stage IV GFR 15-29 Severely Decreased Stage V GFR <15 Very Little GFR Left ESRD GFR <15 on ALODIZE MACHINE OPERATOR Lab Order: CBC with Diff; SPEC'M 06/23/16 11:19 Test: WHITE BLOOD COUNT; Value: 12.2; Range: 4.0-10.0; Abnormal: Above high normal; Units: K/mm3; Status: F Test: RED BLOOD COUNT; Value: 5.26; Range: 4.00-5.40; Units: M/mm3; Status: F Test: HEMOGLOBIN; Value: 15.2; Range: 12.0-16.0; Units: g/dl; Status: F Test: HEMATOCRIT; Value: 47.9; Range: 36.0-47.0; Abnormal: Above high normal; Units: %; Status: F Test: MEAN CORPUSCULAR VOLUME; Value: 90.9; Range: 80.0-96.0; Units: fl; Status: F Test: MEAN CORPUSCULAR HEMOGLOBIN; Value: 29.0; Range: 27.0-33.0; Units: pg; Status: F Test: MEAN CORPUSCULAR HGB CONC; Value: 31.9; Range: 32.0-36.5; Abnormal: Below low normal; Units: g/dl; Status: F Test: RED CELL DISTRIBUTION WIDTH; Value: 13.1; Range: 11.5-14.5; Units: %; Status: F Test: PLATELET COUNT, AUTOMATED; Value: 387; Range: 150-450; Units: k/mm3; Status: F Test: NEUTROPHILS %; Value: 80.7; Range: 36.0-66.0; Abnormal: Above high normal; Units: %; Status: F Test: LYMPH %; Value: 13.6; Range: 24.0-44.0; Abnormal: Below low normal; Units: %; Status: F Test: MONO %; Value: 2.8; Range: 0.0-5.0; Units: %; Status: F Test: EOS %; Value: 1.8; Range: 0.0-3.0; Units: %; Status: F Test: BASO %; Value: 0.5; Range: 0.0-1.0; Units: %; Status: F Test: LARGE UNSTAINED CELL %; Value: 0.6; Range: 0.0-4.0; Units: %; Status: F Test: NEUTROPHILS #; Value: 9.9; Range: 1.8-7.7; Abnormal: Above high normal; Units: K/mm3; Status: F Test: LYMPH #; Value: 1.7; Range: 1.5-4.5; Units: K/mm3; Status: F Test: MONO #; Value: 0.3; Range: 0.0-0.8; Units: K/mm3; Status: F Test: EOS #; Value: 0.2; Range: 0.0-0.50; Units: K/mm3; Status: F Test: BASO #; Value: 0.1; Range: 0.0-0.2; Units: K/mm3; Status: F Test: LARGE UNSTAINED CELL #; Value: 0.1; Range: 0.0-0.4; Units: K/mm3; Status: F Lab Order: Lipase; SPEC'M 06/23/16 11:19 Test: LIPASE; Value: 166; Range: 73-393; Units: U/L; Status: F Lab Order: Liver Profile; SPEC'M 06/23/16 11:19 Test: AST/SGOT; Value: 31; Range: 15-37; Units: U/L; Status: F Test: ALT/SGPT; Value: 41; Range: 12-78; Units: U/L; Status: F Test: ALKALINE PHOSPHATASE; Value: 91; Range: 45-117; Units: U/L; Status: F Test: BILIRUBIN,TOTAL; Value: 0.3; Range: 0.2-1.0; Units: MG/DL; Status: F Test: BILIRUBIN,DIRECT; Value: < 0.1; Range: 0.0-0.2; Units: MG/DL; Status: F Test: TOTAL PROTEIN; Value: 7.5; Range: 6.4-8.2; Units: GM/DL; Status: F Test: ALBUMIN; Value: 4.0; Range: 3.2-5.2; Units: GM/DL; Status: F Test: ALBUMIN/GLOBULIN RATIO; Value: 1.14; Range: 1.00-1.93; Status: F Lab Order: Lactic Acid (Alexander tube on ice); SPEC'M 06/23/16 11:19 Test: LACTIC ACID SEPSIS PROTOCOL; Value: 2.3; Range: 0.4-2.0; Abnormal: Above upper panic limits; Units: MMOL/L; Status: F Radiology Order: Abdomen, Flat\E\Upright,PA Chest Test: Abdomen, Flat\E\Upright,PA Chest REASON FOR EXAMINATION: abdominal pain r/o obstruction; Clinical: Acute abdominal pain.; ; Technique: Upright view of the chest with supine and upright views of the; abdomen and pelvis.; ; Findings: Frontal upright view of the chest demonstrates blunting to the left; diaphragmatic surface and costophrenic angle which may reflect small pleural; effusion and atelectasis. No prior exams available for comparison. Supine and; upright views of the abdomen and pelvis demonstrate nonspecific bowel gas pattern; without obstruction or perforation. Surgical suture material noted in the left; mid abdomen. No organomegaly. Left renal calculi cannot be excluded. Skeletal; structures normal for age.; ; Impression:; Nonspecific bowel gas pattern.; Cannot exclude small left pleural effusion and basilar atelectasis.; Possible small left nephroliths.; ; ; Signed by; Gabriel Tracy MD 06/23/2016 11:47 A; Radiology Order: CT ABD & PELVIS: IV Contrast Only Test: CT ABD & PELVIS: IV Contrast Only REASON FOR EXAMINATION: + lactate, hx bypass;Abd. Pain - Generalized, Nn-focal Exa; Clinical: Generalized acute abdominal pain.; ; Technique: Axial contrast enhanced images from the lung bases to the pubic; symphysis using 100 ml Isovue 370 intravenous contrast material with coronal and; sagittal re-formations.; ; Comparison: None.; ; Findings:; Lung bases demonstrate minimal chronic changes. Visualized heart and pericardium; normal.; ; Liver, spleen, pancreas, bilateral adrenal glands and kidneys are normal. The; gallbladder is mildly distended and otherwise nonspecific. The bowel gas pattern; is nonspecific and without obstruction or obvious acute inflammatory process.; Postsurgical changes involving the stomach and small bowel is noted with presumed; postsurgical ventral hernia/eventration. Scattered colonic diverticula noted.; Normal terminal ileum and appendix identified in the right lower quadrant.; Pelvis demonstrates normal bladder and age-appropriate uterus/adnexa with small; intramural fibroid suggested. No pelvic fluid or ascites. Mildly prominent; mesenteric lymph nodes measure up to approximately 9 mm. No discrete abdominal; or pelvic mass lesion appreciated. Abdominal aorta and vasculature without; aneurysm or dissection. Surrounding musculoskeletal structures demonstrate; age-related degenerative changes.; ; Impression:; 1. Postsurgical changes involving the small bowel and anterior abdominal wall as; well as evidence for prior gastric bypass surgery. Mesenteric lymph nodes up to 9; mm are nonspecific.; 2. Mildly distended gallbladder is nonspecific.; 3. No obvious acute intra-abdominal or pelvic pathology appreciated. No free; fluid. No discrete mass lesion.; ; ; Signed by; Gabriel Tracy MD 06/23/2016 01:16 P; Outcome: 14:28 Discharge ordered by Provider. ar2 14:45 Discharge Assessment: Patient awake, alert and oriented x 3. No cognitive and/or kpj functional deficits noted. Patient verbalized understanding of disposition instructions. patient administered narcotics - no. The following High Risk Discharge criteria are identified: None. Discharged to home ambulatory, with friend. Condition: stable. Discharge instructions given to patient, Instructed on discharge instructions, follow up and referral plans. Demonstrated understanding of instructions, Pt was receptive of discharge instructions/ teaching. CT Study completed. Property sent home with patient. 14:46 Patient left the ED. [facility] Signatures: Dispatcher MedHost EDMS Yusra Chairez, RN SHAHANA Annie Pop RN RN Faina Fiore, IT ACCOUNT MANAGER IT ACCOUNT MANAGER jam1 Perla Daniel, Reg Reg gb Astrid Vickers,RN RN kr3 Ravin Queen, KSENIA PAPatty ar2 Ashli Martin, IT ACCOUNT MANAGER IT ACCOUNT MANAGER ar3 Vikki Blake, IT ACCOUNT MANAGER IT ACCOUNT MANAGER ct3 Faina Hugo,RN RN Seven Vásquez Kathie klr Chart Complete [facility]
== END 2016-06-23 14:46 | disposition home or self-care (01) ==
LOC: M ED 10:30
DX: R10.84 Generalized abdominal pain (principal); M54.9 Dorsalgia, unspecified; F90.9 Attention-deficit hyperactivity disorder, unspecified type; E07.9 Disorder of thyroid, unspecified; Z79.899 Other long term (current) drug therapy; Z79.891 Long term (current) use of opiate analgesic; Z88.5 Allergy status to narcotic agent; Z98.84 Bariatric surgery status
CPT/HCPCS: 74022; 74177; 80048; 80076; 82150; 83605; 83690; 85025; 96360; 96361; 99284; Q9967

== ENCOUNTER → 2018-09-11 | Outpatient (REF) | payer OTHER ==
[~2018-09-11] MED LIST: ALPR1TAB3; AMPHET/DEXTR; LEVO150T7; NITR100C2; NORC1TAB7 PO; PHEN-501; TRAM50TA2; VITA500045
== END ==
LOC: M LAB REF 15:06
PROVIDERS: ATTEND Physician Assistant Medical
DX: N39.0 Urinary tract infection, site not specified (principal)

== ENCOUNTER 2018-09-12 13:14 | Emergency (ER) | payer OTHER ==
[~2018-09-12] VITALS: Ht 149.9 cm; Wt 61.4 kg
[2018-09-12] MEDS ORDERED: ONDANSETRON 4MG/2ML VIAL (J2405) IV ONE (13:30)
[2018-09-12] MEDS ORDERED: KETOROLAC 30 MG/ML VIAL (J1885) IV ONE (13:30)
[2018-09-12] MEDS ORDERED: NITR100C2 (13:33)
[2018-09-12] MEDS ORDERED: ALPR1TAB3 (13:33)
[2018-09-12] MEDS ORDERED: PHEN-501 (13:33)
[2018-09-12] MEDS ORDERED: AMPHET/DEXTR (13:33)
[2018-09-12] MEDS ORDERED: TRAM50TA2 (13:33)
[2018-09-12] MEDS ORDERED: LEVO150T7 (13:33)
[2018-09-12] MEDS ORDERED: VITA500045 (13:33)
[2018-09-12 13:51] LABS: BASO # 0.1 10^3/uL (0.0-0.2); BASO % 0.5 % (0.0-1.0); EOS # 0.1 10^3/uL (0.0-0.50); EOS % 0.4 % (0.0-3.0); HEMOGLOBIN 14.5 g/dl (12.0-15.5); LYMPH # 1.4 10^3/uL (1.5-4.5); MEAN CORPUSCULAR HGB CONC 33.7 g/dl (32.0-36.5); MONO # 0.7 10^3/uL (0.0-0.8); MONO % 4.9 % (0.0-5.0); NEUTROPHILS # 11.8 10^3/uL (1.8-7.7); NEUTROPHILS % 83.8 % (36.0-66.0); PLATELET COUNT, AUTOMATED 357 10^3/uL (150-450)
[2018-09-12 14:30] LABS: ALBUMIN 3.2 GM/DL (3.2-5.2); ALT/SGPT 83 U/L (12-78); BILIRUBIN,DIRECT < 0.1 MG/DL (0.0-0.2); BILIRUBIN,TOTAL 0.4 MG/DL (0.2-1.0); BLOOD UREA NITROGEN 15 MG/DL (7-18); CALCIUM LEVEL 8.8 MG/DL (8.5-10.1); CARBON DIOXIDE LEVEL 22 MEQ/L (21-32); CHLORIDE LEVEL 106 MEQ/L (98-107); CREATININE FOR GFR 0.73 MG/DL (0.55-1.30); GLOMERULAR FILTRATION RATE > 60.0 (>51); GLUCOSE, FASTING 99 MG/DL (70-100); LIPASE 135 U/L (73-393); POTASSIUM SERUM 4.5 MEQ/L (3.5-5.1); SODIUM LEVEL 137 MEQ/L (136-145); TOTAL PROTEIN 7.3 GM/DL (6.4-8.2)
--- NOTE | 2018-09-12 14:43 | REP ---
CT ABDOMEN AND PELVIS WITHOUT CONTRAST: CT abdomen and pelvis performed without oral or IV contrast. Sagittal and coronal reconstruction images are performed. No infiltrate is seen in the visualized lung bases. The liver is grossly unremarkable. There are gallstones in the gallbladder. The spleen, adrenals, pancreas and right kidney are grossly unremarkable. There is mild left hydroureteronephrosis caused by a 4 mm calculus at the left ureterovesical junction. There is a 4 mm intrarenal calculus in the lower pole of the left kidney. There is no abdominal aortic aneurysm. There is no adenopathy. There is no free air or free fluid. I seen on bowel wall thickening. There is no evidence of appendicitis. There is a small ventral hernia superiorly in the midline containing fat. There is diastasis of the rectus muscles. The patient has had prior gastric surgery. No pelvic mass is seen. There are mild degenerative changes of the spine. IMPRESSION: There is mild left hydroureteronephrosis caused by a 4 mm calculus at the left ureterovesical junction. There is also a 4 mm left intrarenal calculus in the lower pole of the left kidney. Note is made of gallstones in the gallbladder. Small ventral hernia anterior in the midline in the upper abdomen containing fat. No evidence of appendicitis. Electronically Signed by Ramy Alexander MD 09/13/2018 03:07 P
[2018-09-12 14:53] LABS: BILIRUBIN, URINE MANUAL OBSCURED (NEGATIVE); GLUCOSE, URINE (UA) MANUAL NEGATIVE (NEGATIVE); KETONE, URINE MANUAL OBSCURED mg/dL (NEGATIVE); UROBILINOGEN, URINE MANUAL OBSCURED mg/dl (NORMAL)
[2018-09-12 14:58] LABS: BACTERIA, URINE SMALL AMOUNT; CALCIUM OXALATE CRYSTALS,URINE SMALL AMOUNT /hpf; HYALINE CAST, URINE NONE SEEN /lpf (0-1); MUCUS, URINE SMALL AMOUNT (NEGATIVE); RBC, URINE 40-50 /hpf (0-3); SQUAMOUS EPITHELIAL CELL URINE MOD AMOUNT /hpf (SMALL AMT)
[2018-09-12] MEDS ORDERED: fentaNYL 100 MCG/2 ML INJECTION (J3010) IV ONE (15:00)
[2018-09-12] MEDS ORDERED: NORC1TAB7 PO (15:08)
[2018-09-12 15:32] VITALS: BP 124/75
== END 2018-09-12 15:41 | disposition home or self-care (01) ==
LOC: M ED 13:14
DX: N13.2 Hydronephrosis with renal and ureteral calculous obstruction (principal); R11.0 Nausea; F17.200 Nicotine dependence, unspecified, uncomplicated; Z88.0 Allergy status to penicillin; Z88.5 Allergy status to narcotic agent; Z79.899 Other long term (current) drug therapy
CPT/HCPCS: 36415; 74176; 80048; 80076; 81000; 83690; 85025; 87088; 87186; 96374; 96375; 99284; J1885; J2405; J3010

== ENCOUNTER 2019-01-22 10:38 | Inpatient (IN) | payer OTHER ==
[~2019-01-22] VITALS: Ht 147.3 cm; Wt 61.6 kg
[~2019-01-22 10:38] MED LIST changes: -ALPR1TAB3; +ALPR1TAB3 PO; -LEVO150T7; +LEVO150T7 PO; -TRAM50TA2; +TRAM50TA2 PO; -VITA500045; +VITA500045 PO
[2019-01-22 11:31] LABS: BASO # 0.1 10^3/uL (0.0-0.2); BASO % 0.3 % (0.0-1.0); HEMATOCRIT 48.3 % (36.0-47.0); HEMOGLOBIN 15.7 g/dl (12.0-15.5); LYMPH # 1.9 10^3/uL (1.5-5.0); LYMPH % 6.9 % (24.0-44.0); MEAN CORPUSCULAR HEMOGLOBIN 29.3 pg (27.0-33.0); MEAN CORPUSCULAR HGB CONC 32.5 g/dl (32.0-36.5); MEAN CORPUSCULAR VOLUME 90.3 fl (80.0-96.0); MONO # 0.9 10^3/uL (0.0-0.8); MONO % 3.2 % (0.0-5.0); PLATELET COUNT, AUTOMATED 440 10^3/uL (150-450); RED BLOOD COUNT 5.35 10^6/uL (4.00-5.40)
[2019-01-22 12:00] LABS: ALBUMIN 3.7 GM/DL (3.2-5.2); ALT/SGPT 34 U/L (12-78); BILIRUBIN,DIRECT 0.2 MG/DL (0.0-0.2); BILIRUBIN,TOTAL 0.5 MG/DL (0.2-1.0); BLOOD UREA NITROGEN 18 MG/DL (7-18); CARBON DIOXIDE LEVEL 26 MEQ/L (21-32); CHLORIDE LEVEL 104 MEQ/L (98-107); CREATININE FOR GFR 0.79 MG/DL (0.55-1.30); GLOMERULAR FILTRATION RATE > 60.0 (>51); GLUCOSE, FASTING 129 MG/DL (70-100); LIPASE 127 U/L (73-393); POTASSIUM SERUM 3.9 MEQ/L (3.5-5.1); SODIUM LEVEL 141 MEQ/L (136-145); TOTAL PROTEIN 6.7 GM/DL (6.4-8.2)
[2019-01-22] MEDS ORDERED: ACETAMINOPHEN TAB 650MG DOSE (2X325MG) PO ONE (12:30)
[2019-01-22] MEDS: NS 1,000 ML IV SCH ×2 (12:35→19:26)
[2019-01-22] MEDS: GASTROGRAFIN SOLUTION 30ML PO SCH ×2 (13:33→14:03)
--- NOTE | 2019-01-22 13:48 | REP ---
ABDOMINAL SERIES: Abdominal pain. FINDINGS: Supine and upright views of the abdomen show the intestinal gas pattern to be nonspecific. Gas and stool is seen throughout the colon within the rectosigmoid region. The organ silhouettes insofar as delineated appear unremarkable. No abdominal calcific densities are seen within the abdomen or pelvis. The accompanying single frontal view of the chest shows no free subdiaphragmatic air, cardiomegaly, infiltrates or effusions. IMPRESSION: Nonspecific intestinal gas pattern. Electronically Signed by Hansel Nguyen DO 01/22/2019 02:22 P
[2019-01-22] MEDS ORDERED: ISOVUE-370 76% 100ML VIAL (Q9967) As Ordered ONE (14:42)
[2019-01-22] MEDS ORDERED: fentaNYL 100 MCG/2 ML INJECTION (J3010) IV ONE (15:45)
[2019-01-22] MEDS ORDERED: PIPERACILLIN/TAZOBACTAM SOD 4.5 GM in D5W MINI-BAG PLUS 50 ML IV ONE (15:45)
[2019-01-22] MEDS ORDERED: ADDE30TA PO (15:58)
[2019-01-22] MEDS ORDERED: ADDE10TA PO (15:58)
[2019-01-22] MEDS ORDERED: ALPRAZolam 0.5 MG TAB PO PRN (16:30)
[2019-01-22] MEDS ORDERED: PERCOCET 5MG/325MG TAB PO PRN (16:30)
[2019-01-22] MEDS ORDERED: HYDROMORPHONE HCL 0.5 MG/ 0.5 ML SYRINGE (J1170 PER 1) IV PRN (16:30)
[2019-01-22] MEDS ORDERED: ONDANSETRON 4MG/2ML VIAL (J2405) IV PRN (16:30)
--- NOTE | 2019-01-22 17:24 | HPEPDOC ---
General Surgery H&P Date of Admission Jan 22, 2019 Attending Physician: EUGENIE ZAZUETA MD History and Physical CHIEF COMPLAINT: abdominal pain HISTORY OF PRESENT ILLNESS: Patient presents to the emergency room roughly about 10 AM today with complaints of overnight history of sudden onset of initially epigastric and generalized abdominal pain and discomfort, nausea, bloating and multiple episodes of vomiting following dinner. She was in the usual state of health. She denies any sick contacts. She denies any prior episodes of similar symptoms or any food intolerance. Couple hours after dinner patient felt some vague epigastric abdominal discomfort that later became sharp. She initially thought she had some food poisoning. This was followed by multiple episodes of vomiting overnight. This morning when she woke up the nausea has improved but still feeling lots of abdominal discomfort now becoming more generalized. She felt warm but did not check her temperature. In the emergency room she was evaluated was found to have some mild fever, evidence for severe acute cholecystitis. ALLERGIES: Please see below. HOME MEDICATIONS: Please see below. PAST MEDICAL HISTORY: 1. History of gastric bypass. 2. Hypothyroidism 3. Anxiety disorder. PAST SURGICAL HISTORY: 1. Gastric bypass. 2. History of bowel obstruction and perforation status post exploratory laparotomy and bowel resection with open abdomen in 2009 3. Open hernia repair with large piece of mesh in the abdomen in 2010. PERSONAL/SOCIAL HISTORY: [Denies smoking, alcohol use, or recreational drug use]. REVIEW OF SYSTEMS: GENERAL: Patient noted to be febrile. Symptoms are of 1 day duration. HEENT: [Denies blurred vision and double vision. Denies ear symptoms. Denies hoarseness]. NECK: [Denies any neck pain]. CARDIOVASCULAR: [Denies chest pain and palpitations]. MUSCULOSKELETAL: [Denies arthralgias, back pain and thrombophlebitis]. SKIN: [Denies rash]. NEUROLOGIC: [Denies headache, stroke and transient ischemic attack]. PSYCHIATRIC: Reports history of anxiety. ENDOCRINE: Reports hypothyroidism on medication. HEMATOLOGY/ONCOLOGY: [Denies any bleeding or clotting disorder]. HEART: [Denies any chest pains, palpitations, paroxysmal dyspnea, orthopnea]. PULMONARY: [Denies chronic cough, dyspnea and wheezing]. GASTROINTESTINAL: See HPI. GENITOURINARY: [Denies dysuria, frequency, hematuria and nocturia]. ENDOCRINE: [Denies polydipsia, polyphagia, polyuria, heat or cold intolerance]. INFECTIOUS: [Denies any recent upper respiratory tract infection, UTI, need for use of antibiotics]. NUTRITION: [Reports good appetite]. PHYSICAL EXAMINATION: VITAL SIGNS: Please see below. GENERAL APPEARANCE: Patient looking mildly uncomfortable. Reports that she does not move she is fairly comfortable but on taking deep breaths and moving that she gets quite uncomfortable. [Awake, alert, oriented]. HEENT: [Normocephalic, atraumatic. [place] palpebral conjunctivae. Anicteric sclerae. Lips dry]. CHEST: [No chest wall abnormalities. Normal respiratory motion/effort]. NECK: [Supple. No thyromegaly. No lymphadenopathies]. LUNGS: [Lung sounds are clear to auscultation bilaterally. No wheezing appreciated]. HEART: [No chest wall abnormalities. Heart rate and rhythm are regular with no murmurs]. ABDOMEN: Patient is a very loose skin and pannus. She has a very thin abdominal wall tracing the area of her hernia at the midline. She is tender to palpation over the right upper quadrant area.. SKIN: [Warm, moist]. EXTREMITIES: [Extremities have no deformities. No edema identified]. NEUROLOGICAL: . ANCILLARIES: . LABORATORY DATA: Please see below. MICROBIOLOGY: Please see below. IMAGING: CT scan of the abdomen and pelvis IMPRESSION AND PLAN: Acute cholecystitis Patient appears to have very inflamed gallbladder, very high white count at 27,000 and also has been having low-grade temperature. She has significant history of abdominal surgery including a wide area of mesh, no real abdominal wall see for the mesh from her previous perforation and subsequent exploratory laparotomy. I think it would be prohibitive to try to go in emergently in her abdomen to perform a cholecystectomy. I don't think this can be done lapa roscopically. Added to that the difficulty of getting the abdomen, performing lysis of adhesions and possibility of having bowel injuries in addition to trying to perform an emergency or urgent cholecystectomy, I think a more prudent approach will be to try to get the gallbladder drained and try to get her over this acute attack and possibly performing cholecystectomy at 4-8 weeks afterwards. I'll we will start her on Zosyn overnight. Tomorrow I will arrange for percutaneous cholecystostomy. Vital Signs Vital Signs Date Time Temp Pulse Resp B/P (MAP) Pulse Ox O2 Delivery O2 Flow Rate FiO2 01/22/19 16:15 90 108/58 (75) 97 Room Air 01/22/19 16:02 20 01/22/19 14:54 100.0 Laboratory Data Labs 24H Laboratory Tests 2 01/22/19 11:09: Immature Granulocyte % (Auto) 0.6, White Blood Count 27.0H, Red Blood Count 5.35, Hemoglobin 15.7H, Hematocrit 48.3H, Mean Corpuscular Volume 90.3, Mean Corpuscular Hemoglobin 29.3, Mean Corpuscular Hemoglobin Concent 32.5, Red Cell Distribution Width 13.3, Platelet Count 440, Neutrophils (%) (Auto) 89.0H, Lymphocytes (%) (Auto) 6.9L, Monocytes (%) (Auto) 3.2, Eosinophils (%) (Auto) 0.0, Basophils (%) (Auto) 0.3, Neutrophils # (Auto) 24.0H, Lymphocytes # (Auto) 1.9, Monocytes # (Auto) 0.9H, Eosinophils # (Auto) 0.0, Basophils # (Auto) 0.1, Nucleated Red Blood Cells % (auto) 0.0, Anion Gap 11, Glomerular Filtration Rate > 60.0, Blood Urea Nitrogen 18, Creatinine 0.79, Sodium Level 141, Potassium Level 3.9, Chloride Level 104, Carbon Dioxide Level 26, Calcium Level 9.0, Aspartate Amino Transf (AST/SGOT) 31, Alanine Aminotransferase (ALT/SGPT) 34, Alkaline Phosphatase 80, Total Bilirubin 0.5, Direct Bilirubin 0.2, Total Protei n 6.7, Albumin 3.7, Albumin/Globulin Ratio 1.23, Lipase 127 01/22/19 12:36: Urine Color CARL, Urine Appearance HAZY, Urine pH 5.0, Urine Specific [place] 1.024, Urine Protein 1+H, Urine Glucose (UA) NEGATIVE, Urine Ketones TRACEH, Urine Blood NEGATIVE, Urine Nitrite NEGATIVE, Urine Bilirubin NEGATIVE, Urine Urobilinogen 2.0H, Urine Leukocyte Esterase NEGATIVE, Urine WBC (Auto) 5H, Urine RBC (Auto) 3, Urine Hyaline Casts (Auto) 0, Urine Bacteria (Auto) NEGATIVE, Urine Squamous Epithelial Cells 5, Urine Mucus (Auto) LARGE, Urine Sperm (Auto) CBC/BMP Laboratory Tests 9/15/19 11:09 Red Blood Count 5.35, Mean Corpuscular Volume 90.3, Mean Corpuscular Hemoglobin 29.3, Mean Corpuscular Hemoglobin Concent 32.5, Red Cell Distribution Width 13.3, Neutrophils (%) (Auto) 89.0 H, Lymphocytes (%) (Auto) 6.9 L, Monocytes (%) (Auto) 3.2, Eosinophils (%) (Auto) 0.0, Basophils (%) (Auto) 0.3, Neutrophils # (Auto) 24.0 H, Lymphocytes # (Auto) 1.9, Monocytes # (Auto) 0.9 H, Eosinophils # (Auto) 0.0, Basophils # (Auto) 0.1, Calcium Level 9.0, Aspartate Amino Transf (AST/SGOT) 31, Alanine Aminotransferase (ALT/SGPT) 34, Alkaline Phosphatase 80, Total Bilirubin 0.5, Direct Bilirubin 0.2, Total Protein 6.7, Albumin 3.7 Home Medications Scheduled Dextroamphetamine/Amphetamine (Adderall 10 mg Tablet) 10 Mg Tablet, 10 MG PO BID, (Reported) TAKES AM/1500 WITH 30MG DOSE, FOR 40MG TOTAL DOSE BID Dextroamphetamine/Amphetamine (Adderall 30 mg Tablet) 30 Mg Tablet, 30 MG PO BID, (Reported) TAKES AM/1500 WITH 10MG DOSE, FOR 40MG TOTAL DOSE BID Ergocalciferol (Vitamin D2) (Vitamin D2) 50,000 Unit Capsule, 50,000 UNIT PO QWEEK, (Reported) THURSDAYS Levothyroxine Sodium (Levothyroxine Sodium) 150 Mcg Tablet, 150 MCG PO DAILY, (Reported) Scheduled PRN Alprazolam (Alprazolam) 1 Mg Tablet, 1 MG PO TID PRN for ANXIETY, (Reported) Tramadol HCl (Tramadol HCl) 50 Mg Tablet, 50 MG PO TID PRN for PAIN, (Reported) Allergies Coded Allergies: Penicillins (Verified Adverse Reaction, Mild, vomiting, 01/22/19) morphine (Verified Adverse Reaction, Mild, vomiting, 01/22/19) A-FIB/CHADSVASC A-FIB History Current/History of A-Fib/PAF?: No Current PO Anticoag Therapy: No EUGENIE ZAZUETA MD Jan 22, 2019 17:24
--- NOTE | 2019-01-22 19:44 | REP ---
REASON: Fever and upper abdominal pain. COMPARISON: 09/12/2018 a noncontrast enhanced examination. Subsegmental atelectatic changes are seen in the lung bases. There is extensive pericholecystic edema along with free fluid seen in Otto's pouch and within the right pericolic gutter. A small amount of fluid is seen in Otto's pouch. There is a fluid collection adjacent to the interpolar region of the right kidney medially unchanged from the prior exam and consistent with a large extrarenal pelvis. This was also noted on an older exam of 06/23/2016. The liver, spleen, pancreas, adrenal glands and kidneys are within normal limits. The abdominal aorta and paraaortic regions are within normal limits. The bowel loops and their mesenteries are within normal limits. There is no evidence of free air. There is a ventral hernia status quo. CT PELVIS: There is no free fluid or free air. There is no mass or adenopathy. The bowel loops and their mesenteries are unremarkable. The osseous structures are stable and intact. IMPRESSION: 1. Significant pericholecystic edema and pericholecystic fluid in the right upper quadrant as described above. The finding is consistent with acute cholecystitis which needs to be correlated clinically. 2. Other findings which appear stable as described above. Electronically Signed by Hansel Nguyen DO 01/23/2019 10:44 A
[2019-01-22] MEDS ORDERED: ACETAMINOPHEN TAB 650MG DOSE (2X325MG) PO PRN (19:45)
[2019-01-22] MEDS: LR 1,000 ML IV SCH (20:06)
[2019-01-22 21:01] VITALS: BP 99/56
[2019-01-22] MEDS: SENOKOT S TAB PO SCH (21:04)
[2019-01-22] MEDS: PIPERACILLIN/TAZOBACTAM SOD 3.375 GM in D5W MINI-BAG PLUS 50 ML IV SCH (22:01)
[2019-01-22] MEDS: KETOROLAC 30 MG/ML VIAL (J1885) IV PRN (22:32)
[2019-01-23 04:35] VITALS: BP 106/57
[2019-01-23] MEDS: KETOROLAC 30 MG/ML VIAL (J1885) IV PRN ×2 (04:49→13:42)
[2019-01-23] MEDS: PIPERACILLIN/TAZOBACTAM SOD 3.375 GM in D5W MINI-BAG PLUS 50 ML IV SCH ×4 (04:49→21:00)
[2019-01-23] MEDS: LR 1,000 ML IV SCH ×4 (05:05→23:29)
[2019-01-23] MEDS: LEVOTHYROXINE 150MCG TABLET (0.15MG) PO SCH (05:12)
[2019-01-23 07:23] LABS: BASO # 0.1 10^3/uL (0.0-0.2); BASO % 0.4 % (0.0-1.0); EOS % 0.1 % (0.0-3.0); HEMATOCRIT 41.4 % (36.0-47.0); HEMOGLOBIN 13.9 g/dl (12.0-15.5); LYMPH # 1.9 10^3/uL (1.5-5.0); LYMPH % 7.7 % (24.0-44.0); MEAN CORPUSCULAR HEMOGLOBIN 29.8 pg (27.0-33.0); MEAN CORPUSCULAR HGB CONC 33.6 g/dl (32.0-36.5); MEAN CORPUSCULAR VOLUME 88.8 fl (80.0-96.0); MONO # 0.8 10^3/uL (0.0-0.8); MONO % 3.1 % (0.0-5.0); NEUTROPHILS # 21.4 10^3/uL (1.5-8.5); NEUTROPHILS % 88.2 % (36.0-66.0); RED BLOOD COUNT 4.66 10^6/uL (4.00-5.40); WHITE BLOOD COUNT 24.2 10^3/uL (4.0-10.0)
[2019-01-23 07:32] LABS: PLATELET COUNT, AUTOMATED 291 10^3/uL (150-450)
[2019-01-23 07:51] LABS: ALBUMIN 2.6 GM/DL (3.2-5.2); ALT/SGPT 91 U/L (12-78); BLOOD UREA NITROGEN 21 MG/DL (7-18); CALCIUM LEVEL 8.6 MG/DL (8.5-10.1); CARBON DIOXIDE LEVEL 27 MEQ/L (21-32); CHLORIDE LEVEL 109 MEQ/L (98-107); CREATININE FOR GFR 0.66 MG/DL (0.55-1.30); GLOMERULAR FILTRATION RATE > 60.0 (>51); GLUCOSE, FASTING 116 MG/DL (70-100); POTASSIUM SERUM 3.6 MEQ/L (3.5-5.1); SODIUM LEVEL 142 MEQ/L (136-145)
[2019-01-23] MEDS: PANTOPRAZOLE 40MG INJ (PROTONIX) (C9113) IV SCH (08:09)
[2019-01-23] MEDS: SENOKOT S TAB PO SCH ×2 (08:09→20:59)
[2019-01-23] MEDS: PERCOCET 5MG/325MG TAB PO PRN ×2 (08:14→18:29)
[2019-01-23] MEDS ORDERED: ENOXAPARIN 40 MG/0.4 ML SYRINGE (J1650) SC SCH (09:00)
--- NOTE | 2019-01-23 10:47 | IPNPDOC ---
Subjective General Date/Time Seen The patient was seen on 01/23/19 at 10:45. Subject Chief Complaint/History The patient is a 53-year-old female admitted with a reason for visit of Acute Cholecystitis. Patient reports feels mildly better, last febrile temp. was in the ER. Current Medications Current Medications Current Medications Medications (Trade) Dose Ordered Sig/Treasure Route PRN Reason Start Time Stop Time Status Last Admin Dose Admin Acetaminophen (Tylenol Tab) 650 mg Q4HP PRN PO PAIN OR FEVER 01/22/19 19:45 01/22/19 20:06 Alprazolam (Xanax) 1 mg TID PRN PO ANXIETY 01/22/19 16:30 Diatrizoate Meglum/ Diatrizoate Sod (Gastrografin) 10 ml Q30M PO 01/22/19 13:25 01/22/19 13:56 DC 01/22/19 14:03 Enoxaparin Sodium (Lovenox) 40 mg DAILY SC 01/23/19 09:00 Future Hold Home Med (Med Rec Complete!) ASDIRECTED XX 01/22/19 16:00 01/22/19 16:03 DC Hydromorphone HCl (Dilaudid) 0.5 mg Q3HP PRN IV MILD PAIN (PS 1-4) 01/22/19 16:30 Ketorolac Tromethamine (ToRADol) 30 mg Q6HP PRN IV MILD/MODERATE PAIN (PS 1-7) 01/22/19 16:30 01/27/19 16:29 01/23/19 04:49 Lactated Ringer's 1,000 ml @ 125 mls/hr Q8H IV 01/22/19 16:22 01/23/19 05:05 Levothyroxine Sodium (Synthroid) 150 mcg DAILY@0600 PO 01/23/19 06:00 01/23/19 05:12 Ondansetron HCl (ZOFRAN INJection) 4 mg Q6HP PRN IV NAUSEA OR VOMITING 01/22/19 16:30 Oxycodone/ Acetaminophen (Percocet 5mg/ 325mg Tablet) 1 tab Q4HP PRN PO MODERATE PAIN (PS 5-7) 01/22/19 16:30 Oxycodone/ Acetaminophen (Percocet 5mg/ 325mg Tablet) 2 tab Q6HP PRN PO SEVERE PAIN (PS 8-10) 01/22/19 16:30 01/23/19 08:14 Pantoprazole Sodium (Protonix) 40 mg DAILY IV 01/23/19 09:00 01/23/19 08:09 Piperacillin Sod/ Tazobactam Sod 3.375 gm/Dextrose 50 ml @ 50 mls/hr Q6H IV 01/22/19 22:00 01/23/19 10:36 Senna/Docusate Sodium (Senokot S) 1 tab BID PO 01/22/19 21:00 01/23/19 08:09 Sodium Chloride 1,000 ml @ 150 mls/hr Q6H40M IV 01/22/19 12:16 01/22/19 19:44 DC 01/22/19 19:26 Allergies Coded Allergies: Penicillins (Verified Adverse Reaction, Mild, vomiting, 01/22/19) morphine (Verified Adverse Reaction, Mild, vomiting, 01/22/19) Objective Physical Examination Examination GENERAL APPEARANCE:[Patient seen, laying in bed, awake, alert, and oriented. Comfortable, in no acute distress]. SKIN: [Warm and moist]. HEENT: [Normocephalic, atraumatic. [place] palpebral conjunctiva, anicteric sclerae. Lips and mucosa appear moist]. NECK: [Supple, no thyromegaly. No obvious jugular venous distention]. LUNGS: [Clear to auscultation bilaterally. No wheezing appreciated]. HEART: [No chest wall abnormalities. Regular rate and rhythm with no murmurs appreciated]. ABDOMEN: Abdomen is , soft, . [No hepatosplenomegaly. No umbilical or groin herniations, nondistended. No noticeable rebound or guarding. No grimacing with palpation. No rebound tenderness. No masses appreciated]. EXTREMITIES: [Extremities have no deformities. No edema identified]. Vital Signs Vital Signs Date Time Temp Pulse Resp B/P (MAP) Pulse Ox O2 Delivery O2 Flow Rate FiO2 01/23/19 08:44 17 01/23/19 04:35 98.8 87 106/57 (73) 95 01/22/19 20:25 Room Air I&Os I&O- Last 24 Hours up to 6 AM 01/23/19 06:00 Intake Total 170 ml Output Total 150 ml Balance 20 ml Laboratory Data Labs 24H Laboratory Tests 2 01/22/19 11:09: Immature Granulocyte % (Auto) 0.6, White Blood Count 27.0H, Red Blood Count 5.35, Hemoglobin 15.7H, Hematocrit 48.3H, Mean Corpuscular Volume 90.3, Mean Corpuscular Hemoglobin 29.3, Mean Corpuscular Hemoglobin Concent 32.5, Red Cell Distribution Width 13.3, Platelet Count 440, Neutrophils (%) (Auto) 89.0H, Lymphocytes (%) (Auto) 6.9L, Monocytes (%) (Auto) 3.2, Eosinophils (%) (Auto) 0.0, Basophils (%) (Auto) 0.3, Neutrophils # (Auto) 24.0H, Lymphocytes # (Auto) 1.9, Monocytes # (Auto) 0.9H, Eosinophils # (Auto) 0.0, Basophils # (Auto) 0.1, Nucleated Red Blood Cells % (auto) 0.0, Anion Gap 11, Glomerular Filtration Rate > 60.0, Blood Urea Nitrogen 18, Creatinine 0.79, Sodium Level 141, Potassium Level 3.9, Chloride Level 104, Carbon Dioxide Level 26, Calcium Level 9.0, Aspartate Amino Transf (AST/SGOT) 31, Alanine Aminotransferase (ALT/SGPT) 34, Alkaline Phosphatase 80, Total Bilirubin 0.5, Direct Bilirubin 0.2, Total P rotein 6.7, Albumin 3.7, Albumin/Globulin Ratio 1.23, Lipase 127 01/22/19 12:36: Urine Color CARL, Urine Appearance HAZY, Urine pH 5.0, Urine Specific [place] 1.024, Urine Protein 1+H, Urine Glucose (UA) NEGATIVE, Urine Ketones TRACEH, Urine Blood NEGATIVE, Urine Nitrite NEGATIVE, Urine Bilirubin NEGATIVE, Urine Urobilinogen 2.0H, Urine Leukocyte Esterase NEGATIVE, Urine WBC (Auto) 5H, Urine RBC (Auto) 3, Urine Hyaline Casts (Auto) 0, Urine Bacteria (Auto) NEGATIVE, Urine Squamous Epithelial Cells 5, Urine Mucus (Auto) LARGE, Urine Sperm (Auto) 01/22/19 17:25: Methicillin-Resist S.aureus DNA PCR NOT DETECTED 01/23/19 07:02: Immature Granulocyte % (Auto) 0.5, White Blood Count 24.2H, Red Blood Count 4.66, Hemoglobin 13.9, Hematocrit 41.4, Mean Corpuscular Volume 88.8, Mean Corpuscular Hemoglobin 29.8, Mean Corpuscular Hemoglobin Concent 33.6, Red Cell Distribution Width 13.8, Platelet Count 291#, Neutrophils (%) (Auto) 88.2H, Lymphocytes (%) (Auto) 7.7L, Monocytes (%) (Auto) 3.1, Eosinophils (%) (Auto) 0.1, Basophils (%) (Auto) 0.4, Neutrophils # (Auto) 21.4H, Lymphocytes # (Auto) 1.9, Monocytes # (Auto) 0.8, Eosinophils # (Auto) 0.0, Basophils # (Auto) 0.1, Nucleated Red Blood Cells % (auto) 0.0, Anion Gap 6L, Glomerular Filtration Rate > 60.0, Blood Urea Nitrogen 21H, Creatinine 0.66, Sodium Level 142, Potassium L evel 3.6, Chloride Level 109H, Carbon Dioxide Level 27, Calcium Level 8.6, Aspartate Amino Transf (AST/SGOT) 61H, Alanine Aminotransferase (ALT/SGPT) 91H, Alkaline Phosphatase 82, Total Bilirubin 1.0#, Total Protein 6.0L, Albumin 2.6#L, Albumin/Globulin Ratio 0.76L CBC/BMP Laboratory Tests 01/22/19 11:09 Red Blood Count 5.35, Mean Corpuscular Volume 90.3, Mean Corpuscular Hemoglobin 29.3, Mean Corpuscular Hemoglobin Concent 32.5, Red Cell Distribution Width 13.3, Neutrophils (%) (Auto) 89.0 H, Lymphocytes (%) (Auto) 6.9 L, Monocytes (%) (Auto) 3.2, Eosinophils (%) (Auto) 0.0, Basophils (%) (Auto) 0.3, Neutrophils # (Auto) 24.0 H, Lymphocytes # (Auto) 1.9, Monocytes # (Auto) 0.9 H, Eosinophils # (Auto) 0.0, Basophils # (Auto) 0.1, Calcium Level 9.0, Aspartate Amino Transf (AST/SGOT) 31, Alanine Aminotransferase (ALT/SGPT) 34, Alkaline Phosphatase 80, Total Bilirubin 0.5, Direct Bilirubin 0.2, Total Protein 6.7, Albumin 3.7 01/23/19 07:02 Red Blood Count 4.66, Mean Corpuscular Volume 88.8, Mean Corpuscular Hemoglobin 29.8, Mean Corpuscular Hemoglobin Concent 33.6, Red Cell Distribution Width 13.8, Neutrophils (%) (Auto) 88.2 H, Lymphocytes (%) (Auto) 7.7 L, Monocytes (%) (Auto) 3.1, Eosinophils (%) (Auto) 0.1, Basophils (%) (Auto) 0.4, Neutrophils # (Auto) 21.4 H, Lymphocytes # (Auto) 1.9, Monocytes # (Auto) 0.8, Eosinophils # (Auto) 0.0, Basophils # (Auto) 0.1, Calcium Level 8.6, Aspartate Amino Transf (AST/SGOT) 61 H, Alanine Aminotransferase (ALT/SGPT) 91 H, Alkaline Phosphatase 82, Total Bilirubin 1.0 #, Total Protein 6.0 L, Albumin 2.6 #L Impression Acute Cholecystitis history of mutltiple abodminal surgeries, mesh implant to the hernia repair patient for percutaneous cholecystostomy today continue abx. Plan / VTE VTE Prophylaxis Ordered?: Yes EUGENIE ZAZUETA MD Jan 23, 2019 10:46
[2019-01-23] MEDS ORDERED: LIDOCAINE 1% MDV 20ML VIAL As Ordered ONE (11:49)
[2019-01-23 14:00] VITALS: BP 92/53
--- NOTE | 2019-01-23 16:13 | REP ---
ULTRASOUND-GUIDED CHOLECYSTOSTOMY DRAINAGE CATHETER PLACEMENT The procedure was performed under the direct supervision of Dr. Alexander. The risks and benefits of the procedure were explained to the patient and informed consent was obtained. The gallbladder was localized using ultrasound guidance. The skin was prepped and draped in a sterile fashion. 1% lidocaine was used as a local anesthetic. Using ultrasound guidance an 8-[place] APDL the catheter was inserted using trocar technique. 60 ml of brownish colored fluid was withdrawn and sent to lab for analysis. The catheter was affixed to the skin and a sterile dressing was applied. The catheter was connected to a gravity drainage bag. The patient tolerated the procedure well and there were no immediate complications. After the appropriate amount of monitored convalescence the patient was discharged from the department. Electronically Signed by BISMARK Price 01/23/2019 12:42 P Electronically Signed by Ramy Alexander MD 01/23/2019 04:05 P
[2019-01-23 20:00] VITALS: BP 103/56
[2019-01-24] MEDS: PERCOCET 5MG/325MG TAB PO PRN ×4 (01:34→21:11)
[2019-01-24] MEDS: PIPERACILLIN/TAZOBACTAM SOD 3.375 GM in D5W MINI-BAG PLUS 50 ML IV SCH ×4 (03:39→21:09)
[2019-01-24] MEDS: LEVOTHYROXINE 150MCG TABLET (0.15MG) PO SCH (05:50)
[2019-01-24 06:59] LABS: BASO % 0.3 % (0.0-1.0); EOS # 0.1 10^3/uL (0.0-0.5); EOS % 0.4 % (0.0-3.0); HEMATOCRIT 35.7 % (36.0-47.0); LYMPH # 1.1 10^3/uL (1.5-5.0); LYMPH % 7.9 % (24.0-44.0); MEAN CORPUSCULAR HGB CONC 32.8 g/dl (32.0-36.5); MEAN CORPUSCULAR VOLUME 91.5 fl (80.0-96.0); MONO # 0.6 10^3/uL (0.0-0.8); MONO % 3.9 % (0.0-5.0); NEUTROPHILS # 12.4 10^3/uL (1.5-8.5); NEUTROPHILS % 86.6 % (36.0-66.0); PLATELET COUNT, AUTOMATED 253 10^3/uL (150-450); WHITE BLOOD COUNT 14.3 10^3/uL (4.0-10.0)
[2019-01-24 07:04] LABS: HEMOGLOBIN 11.7 g/dl (12.0-15.5)
[2019-01-24 07:32] LABS: ALBUMIN 2.3 GM/DL (3.2-5.2); ALT/SGPT 55 U/L (12-78); BILIRUBIN,TOTAL 0.6 MG/DL (0.2-1.0); BLOOD UREA NITROGEN 17 MG/DL (7-18); CALCIUM LEVEL 8.3 MG/DL (8.5-10.1); CARBON DIOXIDE LEVEL 26 MEQ/L (21-32); CHLORIDE LEVEL 110 MEQ/L (98-107); CREATININE FOR GFR 0.64 MG/DL (0.55-1.30); GLOMERULAR FILTRATION RATE > 60.0 (>51); GLUCOSE, FASTING 93 MG/DL (70-100); POTASSIUM SERUM 3.6 MEQ/L (3.5-5.1); SODIUM LEVEL 141 MEQ/L (136-145); TOTAL PROTEIN 5.6 GM/DL (6.4-8.2)
[2019-01-24] MEDS: SENOKOT S TAB PO SCH ×2 (08:05→21:09)
[2019-01-24] MEDS: PANTOPRAZOLE 40MG INJ (PROTONIX) (C9113) IV SCH (08:07)
[2019-01-24 14:00] VITALS: BP 121/67
[2019-01-24] MEDS: LR 1,000 ML IV SCH ×2 (17:07→21:08)
[2019-01-24 20:00] VITALS: BP 125/70
[2019-01-25] MEDS: PIPERACILLIN/TAZOBACTAM SOD 3.375 GM in D5W MINI-BAG PLUS 50 ML IV SCH ×4 (03:47→20:54)
[2019-01-25 04:00] VITALS: BP 112/59
[2019-01-25] MEDS: LEVOTHYROXINE 150MCG TABLET (0.15MG) PO SCH (05:36)
[2019-01-25 06:16] LABS: BASO # 0.1 10^3/uL (0.0-0.2); BASO % 0.7 % (0.0-1.0); EOS # 0.2 10^3/uL (0.0-0.5); EOS % 2.1 % (0.0-3.0); HEMATOCRIT 36.2 % (36.0-47.0); HEMOGLOBIN 11.6 g/dl (12.0-15.5); LYMPH # 1.7 10^3/uL (1.5-5.0); LYMPH % 20.7 % (24.0-44.0); MEAN CORPUSCULAR HEMOGLOBIN 29.1 pg (27.0-33.0); MONO # 0.4 10^3/uL (0.0-0.8); MONO % 5.1 % (0.0-5.0); NEUTROPHILS # 5.7 10^3/uL (1.5-8.5); PLATELET COUNT, AUTOMATED 260 10^3/uL (150-450); RED BLOOD COUNT 3.98 10^6/uL (4.00-5.40); WHITE BLOOD COUNT 8.1 10^3/uL (4.0-10.0)
[2019-01-25 06:54] LABS: ALBUMIN 2.2 GM/DL (3.2-5.2); ALT/SGPT 40 U/L (12-78); BILIRUBIN,TOTAL 0.3 MG/DL (0.2-1.0); BLOOD UREA NITROGEN 8 MG/DL (7-18); CALCIUM LEVEL 8.2 MG/DL (8.5-10.1); CARBON DIOXIDE LEVEL 23 MEQ/L (21-32); CHLORIDE LEVEL 109 MEQ/L (98-107); CREATININE FOR GFR 0.48 MG/DL (0.55-1.30); GLOMERULAR FILTRATION RATE > 60.0 (>51); GLUCOSE, FASTING 88 MG/DL (70-100); POTASSIUM SERUM 3.5 MEQ/L (3.5-5.1); SODIUM LEVEL 140 MEQ/L (136-145)
[2019-01-25] MEDS: PERCOCET 5MG/325MG TAB PO PRN ×3 (07:33→20:54)
[2019-01-25] MEDS: SENOKOT S TAB PO SCH ×2 (07:34→20:53)
[2019-01-25] MEDS: PANTOPRAZOLE 40MG INJ (PROTONIX) (C9113) IV SCH (08:21)
[2019-01-25] MEDS: LR 1,000 ML IV SCH (08:22)
[2019-01-25 12:00] VITALS: BP 150/82
[2019-01-25 20:00] VITALS: BP 141/67
[2019-01-26] MEDS: PIPERACILLIN/TAZOBACTAM SOD 3.375 GM in D5W MINI-BAG PLUS 50 ML IV SCH ×2 (04:09→09:03)
[2019-01-26] MEDS: LEVOTHYROXINE 150MCG TABLET (0.15MG) PO SCH (05:27)
[2019-01-26 06:00] VITALS: BP 118/56
[2019-01-26 07:08] LABS: BASO # 0.1 10^3/uL (0.0-0.2); BASO % 0.5 % (0.0-1.0); EOS # 0.2 10^3/uL (0.0-0.5); HEMATOCRIT 37.9 % (36.0-47.0); HEMOGLOBIN 12.7 g/dl (12.0-15.5); LYMPH % 20.2 % (24.0-44.0); MEAN CORPUSCULAR HEMOGLOBIN 28.9 pg (27.0-33.0); MEAN CORPUSCULAR HGB CONC 33.5 g/dl (32.0-36.5); MEAN CORPUSCULAR VOLUME 86.1 fl (80.0-96.0); MONO # 0.6 10^3/uL (0.0-0.8); MONO % 5.9 % (0.0-5.0); NEUTROPHILS # 6.9 10^3/uL (1.5-8.5); PLATELET COUNT, AUTOMATED 385 10^3/uL (150-450); WHITE BLOOD COUNT 9.7 10^3/uL (4.0-10.0)
[2019-01-26 07:35] LABS: ALBUMIN 2.5 GM/DL (3.2-5.2); ALT/SGPT 32 U/L (12-78); BILIRUBIN,TOTAL 0.4 MG/DL (0.2-1.0); BLOOD UREA NITROGEN 7 MG/DL (7-18); CALCIUM LEVEL 8.6 MG/DL (8.5-10.1); CARBON DIOXIDE LEVEL 30 MEQ/L (21-32); CHLORIDE LEVEL 105 MEQ/L (98-107); CREATININE FOR GFR 0.57 MG/DL (0.55-1.30); GLOMERULAR FILTRATION RATE > 60.0 (>51); GLUCOSE, FASTING 86 MG/DL (70-100); POTASSIUM SERUM 3.4 MEQ/L (3.5-5.1); SODIUM LEVEL 140 MEQ/L (136-145); TOTAL PROTEIN 6.7 GM/DL (6.4-8.2)
[2019-01-26] MEDS: PANTOPRAZOLE 40MG INJ (PROTONIX) (C9113) IV SCH (09:03)
[2019-01-26] MEDS: SENOKOT S TAB PO SCH (09:03)
[2019-01-26] MEDS: PERCOCET 5MG/325MG TAB PO PRN (09:04)
[2019-01-26] MEDS ORDERED: CIPR500S PO (09:21)
[2019-01-26] MEDS ORDERED: PERCOCET PO (09:21)
[2019-01-26] MEDS ORDERED: FLAG500T PO (09:21)
--- NOTE | 2019-01-26 09:22 | DS.PDOC ---
Discharge Summary General Date of Admission Jan 22, 2019 at 16:22 Date of Discharge 2018 Attending Physician: EUGENIE ZAZUETA MD Discharge Summary PROCEDURES PERFORMED DURING STAY: percutaneous cholecystostomy tube placement. ADMITTING DIAGNOSES: 1. acute cholecystitis. DISCHARGE DIAGNOSES: 1. acute cholecystitis. COMPLICATIONS/CHIEF COMPLAINT: Acute Cholecystitis. HISTORY OF PRESENT ILLNESS: . HOSPITAL COURSE: . DISCHARGE MEDICATIONS: Please see below. ALLERGIES: Please see below. PHYSICAL EXAMINATION ON DISCHARGE: VITAL SIGNS: Please see below. GENERAL: HEENT: NECK: CARDIOVASCULAR EXAMINATION: RESPIRATORY EXAMINATION: ABDOMINAL EXAMINATION: EXTREMITIES: SKIN: NEUROLOGICAL EXAMINATION: PSYCHIATRIC EXAMINATION: LABORATORY DATA: Please see below. IMAGING: PROGNOSIS: ACTIVITY: [As tolerated]. DIET: DISCHARGE PLAN: DISPOSITION: . DISCHARGE INSTRUCTIONS: 1. take 2 weeks antibiotic course 2. follow up in clinic in 2 weeks ITEMS TO FOLLOWUP ON ON OUTPATIENT: 1. . DISCHARGE CONDITION: [Stable]. TIME SPENT ON DISCHARGE: Greater than minutes. Vital Signs/I&Os Vital Signs Date Time Temp Pulse Resp B/P (MAP) Pulse Ox O2 Delivery O2 Flow Rate FiO2 01/26/19 09:04 18 01/26/19 06:00 98.5 69 118/56 (76) 96 01/22/19 20:25 Room Air I&O- Last 24 Hours up to 6 AM 01/26/19 06:00 Intake Total 1660 ml Output Total 575 ml Balance 1085 ml Laboratory Data Labs 24H Laboratory Tests 2 01/26/19 06:52: Immature Granulocyte % (Auto) 0.4, White Blood Count 9.7, Red Blood Count 4.40, Hemoglobin 12.7, Hematocrit 37.9, Mean Corpuscular Volume 86.1, Mean Corpuscular Hemoglobin 28.9, Mean Corpuscular Hemoglobin Concent 33.5, Red Cell Distribution Width 13.2, Platelet Count 385, Neutrophils (%) (Auto) 71.0H, Lymphocytes (%) (Auto) 20.2L, Monocytes (%) (Auto) 5.9H, Eosinophils (%) (Auto) 2.0, Basophils (%) (Auto) 0.5, Neutrophils # (Auto) 6.9, Lymphocytes # (Auto) 2.0, Monocytes # (Auto) 0.6, Eosinophils # (Auto) 0.2, Basophils # (Auto) 0.1, Nucleated Red Blood Cells % (auto) 0.0, Anion Gap 5L, Glomerular Filtration Rate > 60.0, Blood Urea Nitrogen 7, Creatinine 0.57, Sodium Level 140, Potassium Level 3.4L, Chloride Level 105, Carbon Dioxide Level 30, Calcium Level 8.6, Aspartate Amino Transf (AST/SGOT) 15, Alanine Aminotransferase (ALT/SGPT) 32, Alkaline Phosphatase 104, Total Bilirubin 0.4, Total Protein 6.7, Albumin 2.5L, Albumin/Globulin Ratio 0.60L CBC/BMP Laboratory Tests 01/26/19 06:52 Red Blood Count 4.40, Mean Corpuscular Volume 86.1, Mean Corpuscular Hemoglobin 28.9, Mean Corpuscular Hemoglobin Concent 33.5, Red Cell Distribution Width 13.2, Neutrophils (%) (Auto) 71.0 H, Lymphocytes (%) (Auto) 20.2 L, Monocytes (%) (Auto) 5.9 H, Eosinophils (%) (Auto) 2.0, Basophils (%) (Auto) 0.5, Neutrophils # (Auto) 6.9, Lymphocytes # (Auto) 2.0, Monocytes # (Auto) 0.6, Eosinophils # (Auto) 0.2, Basophils # (Auto) 0.1, Calcium Level 8.6, Aspartate Amino Transf (AST/SGOT) 15, Alanine Aminotransferase (ALT/SGPT) 32, Alkaline Phosphatase 104, Total Bilirubin 0.4, Total Protein 6.7, Albumin 2.5 L Microbiology Microbiology 01/23/19 Gram Stain - Final, Resulted 01/23/19 Body Fluid Culture - Final, Resulted Escherichia Coli#2 Escherichia Coli 01/23/19 Anaerobic Culture, Resulted Pending Discharge Medications Scheduled [facility] Dextroamphetamine/Amphetamine (Adderall 10 mg Tablet) 10 Mg Tablet, 10 MG PO BID, (Reported) TAKES AM/1500 WITH 30MG DOSE, FOR 40MG TOTAL DOSE BID Dextroamphetamine/Amphetamine (Adderall 30 mg Tablet) 30 Mg Tablet, 30 MG PO BID, (Reported) TAKES AM/1500 WITH 10MG DOSE, FOR 40MG TOTAL DOSE BID Ergocalciferol (Vitamin D2) (Vitamin D2) 50,000 Unit Capsule, 50,000 UNIT PO QWEEK, (Reported) THURSDAYS Levothyroxine Sodium (Levothyroxine Sodium) 150 Mcg Tablet, 150 MCG PO DAILY, (Reported) Metronidazole (Flagyl) 500 Mg Tablet, 500 MG PO Q8H FOR 10 DAYS Scheduled PRN Alprazolam (Alprazolam) 1 Mg Tablet, 1 MG PO TID PRN for ANXIETY, (Reported) Oxycodone/Acetaminophen (Oxycodone-Acetaminophen 5-325) 1 Each Tablet, 1 TAB PO Q6HP PRN for MODERATE PAIN (PS 5-7) Tramadol HCl (Tramadol HCl) 50 Mg Tablet, 50 MG PO TID PRN for PAIN, (Reported) Allergies Coded Allergies: Penicillins (Verified Adverse Reaction, Mild, vomiting, 01/22/19) morphine (Verified Adverse Reaction, Mild, vomiting, 01/22/19) EUGENIE ZAZUETA MD Jan 26, 2019 09:22
[2019-01-26 14:00] VITALS: BP 130/80
== END 2019-01-26 15:36 | disposition home or self-care (01) | DRG 261 ==
LOC: M ED 10:38 → M ED INP 16:22 → M MS4PR 20:35
PROVIDERS: ADMIT Surgery; ATTEND Surgery
PROC: 0F9430Z Drainage of Gallbladder with Drainage Device, Percutaneous Approach (ICD-10-PCS; principal; 2019-01-23 13:00)
DX: K81.0 Acute cholecystitis (principal); E03.9 Hypothyroidism, unspecified; B96.20 Unspecified Escherichia coli [E. coli] as the cause of diseases classified elsewhere; F41.9 Anxiety disorder, unspecified; Z98.84 Bariatric surgery status; Z88.0 Allergy status to penicillin; Z88.5 Allergy status to narcotic agent; Z79.899 Other long term (current) drug therapy

== ENCOUNTER 2019-03-09 13:34 | Emergency (ER) | payer OTHER ==
[~2019-03-09] VITALS: Ht 147.3 cm; Wt 59.1 kg
[~2019-03-09 13:34] MED LIST changes: +ADDE10TA PO; +ADDE30TA PO; +CIPR500S PO; +FLAG500T PO; +PERCOCET PO
[2019-03-09 14:53] LABS: BASO # 0.1 10^3/uL (0.0-0.2); BASO % 0.8 % (0.0-1.0); EOS # 0.1 10^3/uL (0.0-0.5); EOS % 1.2 % (0.0-3.0); HEMATOCRIT 50.6 % (36.0-47.0); LYMPH # 2.2 10^3/uL (1.5-5.0); LYMPH % 29.2 % (24.0-44.0); MEAN CORPUSCULAR HEMOGLOBIN 28.4 pg (27.0-33.0); MEAN CORPUSCULAR HGB CONC 31.6 g/dl (32.0-36.5); MEAN CORPUSCULAR VOLUME 89.9 fl (80.0-96.0); MONO # 0.3 10^3/uL (0.0-0.8); MONO % 4.3 % (0.0-5.0); NEUTROPHILS # 4.7 10^3/uL (1.5-8.5); NEUTROPHILS % 64.1 % (36.0-66.0); PLATELET COUNT, AUTOMATED 423 10^3/uL (150-450); RED BLOOD COUNT 5.63 10^6/uL (4.00-5.40); WHITE BLOOD COUNT 7.4 10^3/uL (4.0-10.0)
[2019-03-09 15:13] LABS: BLOOD UREA NITROGEN 19 MG/DL (7-18); CALCIUM LEVEL 10.1 MG/DL (8.5-10.1); CARBON DIOXIDE LEVEL 30 MEQ/L (21-32); CHLORIDE LEVEL 103 MEQ/L (98-107); CREATININE FOR GFR 0.82 MG/DL (0.55-1.30); GLOMERULAR FILTRATION RATE > 60.0 (>51); GLUCOSE, FASTING 98 MG/DL (70-100); POTASSIUM SERUM 4.5 MEQ/L (3.5-5.1); SODIUM LEVEL 138 MEQ/L (136-145)
[2019-03-09] MEDS ORDERED: ISOVUE-370 76% 100ML VIAL (Q9967) As Ordered ONE ×2 (15:20→17:12)
[2019-03-09] MEDS: GASTROGRAFIN SOLUTION 30ML PO SCH ×2 (15:58→16:23)
[2019-03-09] MEDS ORDERED: NS 1,000 ML IV ONE (16:00)
--- NOTE | 2019-03-09 17:42 | REPVR ---
PROCEDURE INFORMATION: Exam: CT Abdomen And Pelvis With Contrast Exam date and time: 03/09/2019 3:24 PM Clinical history: 53 years old, female; Fever and other: Malodorous gb drain; Prior surgery; Surgery date: 1-6 months; Surgery type: Gallbladder drain; Patient HX: Gastric bypass done 2006; Additional info: S/P gastric bypass, fevers, malodorous gb drain TECHNIQUE: Imaging protocol: Computed tomography of the abdomen and pelvis with intravenous contrast. Radiation optimization: All CT scans at this facility use at least one of these dose optimization techniques: automated exposure control; mA and/or kV adjustment per patient size (includes targeted exams where dose is matched to clinical indication); or iterative reconstruction. Contrast material: ISOVUE 370; Contrast volume: 100 ml; Contrast route: IV; COMPARISON: CT ABD/PEL W/IV ORAL CONTRAS 01/22/2019 2:44 PM FINDINGS: Tubes, catheters and devices: There is a pigtail catheter with a coil placed within the lumen of the gallbladder. There is diffuse gallbladder wall thickening. No pericholecystic fluid is demonstrated. No calculi are demonstrated. Liver: There is a diffuse decrease in hepatic parenchymal density, consistent with fatty infiltration. Gallbladder and bile ducts: See Tubes, Catheters And Devices Finding. Pancreas: Normal. No ductal dilation. Spleen: Normal. No splenomegaly. Adrenals: There is bilateral adrenal hyperplasia. Kidneys and ureters: Linear calcification lower pole left kidney. Stomach and bowel: This patient is status post gastric bypass surgery. There is an ovoid fluid collection located within the duodenal sweep measuring 4.9 x 3.1 x 2.7 cm which appears to represent a large duodenal diverticulum connected to the posterior aspect of the third portion of the duodenum. Mild diverticulosis is present in the distal colon. No diverticulitis. Appendix: No evidence of appendicitis. Intraperitoneal space: Unremarkable. No free air. No significant fluid collection. Vasculature: Unremarkable. No abdominal aortic aneurysm. Lymph nodes: Unremarkable. No enlarged lymph nodes. Bladder: Unremarkable as visualized. Reproductive: Unremarkable as visualized. Bones/joints: Unremarkable. No acute fracture. Soft tissues: There is an subxiphoid mid ventral fatty abdominal wall hernia. There is a large diastases of the rectus sheath with a mid ventral hernia is demonstrated in the lower abdomen which contains bowel loops. IMPRESSION: 1. There is a pigtail catheter with a coil placed within the lumen of the gallbladder. There is diffuse gallbladder wall thickening. No pericholecystic fluid is demonstrated. No calculi are demonstrated. 2. There is a diffuse decrease in hepatic parenchymal density, consistent with fatty infiltration. 3. This patient is status post gastric bypass surgery. 4. There is bilateral adrenal hyperplasia. 5. There is an subxiphoid mid ventral fatty abdominal wall hernia. There is a large diastases of the rectus sheath with a mid ventral hernia is demonstrated in the lower abdomen which contains bowel loops. 6. There is an ovoid fluid collection located within the duodenal sweep consistent with a large duodenal diverticulum connected to the posterior aspect of the third portion of the duodenum. 7. Mild diverticulosis is present in the distal colon. No diverticulitis. Electronically signed by: Jarrett Todd On 03/09/2019 17:42:03 PM
[2019-03-09 19:15] VITALS: BP 127/76
== END 2019-03-09 19:25 | disposition home or self-care (01) ==
LOC: M ED 13:34
DX: E86.0 Dehydration (principal); K76.0 Fatty (change of) liver, not elsewhere classified; K57.30 Diverticulosis of large intestine without perforation or abscess without bleeding; K82.9 Disease of gallbladder, unspecified; K57.10 Diverticulosis of small intestine without perforation or abscess without bleeding; T85.698A Other mechanical complication of other specified internal prosthetic devices, implants and grafts, initial encounter; K46.9 Unspecified abdominal hernia without obstruction or gangrene; E27.8 Other specified disorders of adrenal gland; Z86.19 Personal history of other infectious and parasitic diseases; Z87.19 Personal history of other diseases of the digestive system; E03.9 Hypothyroidism, unspecified; F41.9 Anxiety disorder, unspecified; F90.0 Attention-deficit hyperactivity disorder, predominantly inattentive type; Z90.49 Acquired absence of other specified parts of digestive tract; Z98.84 Bariatric surgery status; Z96.89 Presence of other specified functional implants; Z79.899 Other long term (current) drug therapy; Z88.0 Allergy status to penicillin; Z88.5 Allergy status to narcotic agent
CPT/HCPCS: 36415; 74177; 80048; 83605; 85025; 87040; 87070; 87075; 87077; 87205; 96360; 99284; Q9963; Q9967

== ENCOUNTER 2019-03-12 12:45 | Emergency (ER) | payer OTHER ==
[~2019-03-12] VITALS: Ht 147.3 cm; Wt 131.0 kg
[2019-03-12] MEDS ORDERED: NS 1,000 ML IV SCH (13:21)
[2019-03-12 13:58] LABS: BASO # 0.1 10^3/uL (0.0-0.2); BASO % 0.8 % (0.0-1.0); EOS # 0.1 10^3/uL (0.0-0.5); EOS % 0.8 % (0.0-3.0); HEMATOCRIT 48.3 % (36.0-47.0); HEMOGLOBIN 15.2 g/dl (12.0-15.5); LYMPH # 2.5 10^3/uL (1.5-5.0); LYMPH % 25.5 % (24.0-44.0); MEAN CORPUSCULAR HEMOGLOBIN 28.7 pg (27.0-33.0); MEAN CORPUSCULAR HGB CONC 31.5 g/dl (32.0-36.5); MEAN CORPUSCULAR VOLUME 91.3 fl (80.0-96.0); MONO # 0.5 10^3/uL (0.0-0.8); MONO % 4.8 % (0.0-5.0); NEUTROPHILS # 6.5 10^3/uL (1.5-8.5); NEUTROPHILS % 67.7 % (36.0-66.0); PLATELET COUNT, AUTOMATED 381 10^3/uL (150-450); RED BLOOD COUNT 5.29 10^6/uL (4.00-5.40); WHITE BLOOD COUNT 9.7 10^3/uL (4.0-10.0)
[2019-03-12] MEDS: GASTROGRAFIN SOLUTION 30ML PO SCH ×2 (14:10→14:50)
[2019-03-12 14:50] LABS: ALBUMIN 3.5 GM/DL (3.2-5.2); ALT/SGPT 60 U/L (12-78); BILIRUBIN,DIRECT < 0.1 MG/DL (0.0-0.2); BILIRUBIN,TOTAL 0.3 MG/DL (0.2-1.0); BLOOD UREA NITROGEN 19 MG/DL (7-18); CALCIUM LEVEL 8.6 MG/DL (8.5-10.1); CARBON DIOXIDE LEVEL 27 MEQ/L (21-32); CHLORIDE LEVEL 110 MEQ/L (98-107); CK-MB VALUE MASS < 1.0 NG/ML (<3.6); CPK CREATINE PHOSPHOKINASE 23 U/L (26-192); GLOMERULAR FILTRATION RATE > 60.0 (>51); GLUCOSE, FASTING 80 MG/DL (70-100); LIPASE 171 U/L (73-393); MB/CK RELATIVE INDEX 4.35 (< OR =4); POTASSIUM SERUM 3.9 MEQ/L (3.5-5.1); SODIUM LEVEL 143 MEQ/L (136-145); TROPONIN I < 0.02 NG/ML (< 0.10)
[2019-03-12] MEDS ORDERED: ISOVUE-370 76% 100ML VIAL (Q9967) As Ordered ONE (15:55)
--- NOTE | 2019-03-12 16:22 | REP ---
Clinical: Right lower quadrant pain. Technique: Axial contrast enhanced images from the lung bases to the pubic symphysis using oral (per protocol) and 100 ml Isovue 370 intravenous contrast material with coronal and sagittal re-formations. Comparison: 03/09/2019. Findings: Lung bases are clear. Visualized heart and pericardium normal. Liver, spleen, pancreas, bilateral adrenal glands and kidneys are normal. Fatty infiltration to the liver cannot be excluded. Percutaneous cholecystostomy tube in satisfactory position and the gallbladder is otherwise grossly unremarkable. Evidence of prior gastric bypass surgery. Stable duodenal diverticulum is suggested. Ventral hernia contains nonobstructed loops of small bowel. There is no evidence for bowel obstruction. Normal appendix identified in the right lower quadrant. Sigmoid diverticulosis noted without acute diverticulitis. Pelvis demonstrates normal bladder and age-appropriate uterus/adnexa. No ascites. No free air. No adenopathy. Abdominal aorta without aneurysm or dissection. Osseous structures are intact. Impression: 1. Gallbladder with cholecystostomy tube appears normal. 2. Normal right lower quadrant structures including appendix. 3. No ascites. No free air. No focal inflammatory changes. No adenopathy. 4. Nonacute findings as described above. Electronically Signed by Gabriel Tracy MD 03/12/2019 04:14 P
[2019-03-12] MEDS ORDERED: ACETAMINOPHEN TAB 650MG DOSE (2X325MG) PO ONE (16:30)
[2019-03-12 16:45] VITALS: BP 125/77
[2019-03-12] MEDS ORDERED: CIPROFLOXACIN 500 MG TAB PO ONE (16:45)
[2019-03-12] MEDS ORDERED: CIPR-249 PO (16:52)
--- NOTE | 2019-03-13 16:22 | ECGEPIP ---
[facility] - ED Test Date: 2019-03-12 Pat Name: BALAJI DAMON Department: Room: - Gender: Female [employer]: DONALD : 1965 Requested By: HONEY Camilo Order Number: [id number] Reading MD: Zehra Artis Measurements Intervals [place] Rate: 86 P: 62 TN: 128 QRS: 61 QRSD: 97 T: 51 QT: 357 QTc: 427 Interpretive Statements SINUS RHYTHM RIGHT VENTRICULAR DELAY NO PRIOR Electronically Signed on 03-13-2019 16:21:53 EST by Zehra Artis
--- NOTE | 2019-03-21 13:07 | ED PDOC ---
Post-Departure Follow-Up radiology report faxed to Zehra Boothe MD Mar 21, 2019 13:07
== END 2019-03-12 17:05 | disposition home or self-care (01) ==
LOC: M ED 12:45
DX: R53.81 Other malaise (principal); R53.83 Other fatigue; R11.0 Nausea; E03.9 Hypothyroidism, unspecified; F41.9 Anxiety disorder, unspecified; Z98.84 Bariatric surgery status; Z88.0 Allergy status to penicillin; Z88.6 Allergy status to analgesic agent; Z79.899 Other long term (current) drug therapy
CPT/HCPCS: 74177; 80048; 80076; 82550; 82553; 83690; 85025; 87070; 87076; 87077; 87186; 87205; 93005; 93041; 96360; 96361; 99285; Q9963; Q9967

== ENCOUNTER → 2021-01-01 | Outpatient (CLI) | payer OTHER ==
[~2021-01-01] MED LIST changes: +CIPR-249 PO
[2021-01-01 13:45] LABS: HEMATOCRIT 45.2 % (36.0-47.0); HEMOGLOBIN 14.3 g/dl (12.0-15.5); MEAN CORPUSCULAR HEMOGLOBIN 26.3 pg (27.0-33.0); MEAN CORPUSCULAR HGB CONC 31.6 g/dl (32.0-36.5); MEAN CORPUSCULAR VOLUME 83.2 fl (80.0-96.0); PLATELET COUNT, AUTOMATED 428 10^3/uL (150-450); RED BLOOD COUNT 5.43 10^6/uL (4.00-5.40); WHITE BLOOD COUNT 9.2 10^3/uL (4.0-10.0)
[2021-01-01 14:17] LABS: ALBUMIN 3.7 GM/DL (3.2-5.2); ALT/SGPT 40 U/L (12-78); BILIRUBIN,TOTAL 0.3 MG/DL (0.2-1.0); BLOOD UREA NITROGEN 13 MG/DL (7-18); CARBON DIOXIDE LEVEL 25 MEQ/L (21-32); CHLORIDE LEVEL 108 MEQ/L (98-107); CHOLESTEROL LEVEL 190 MG/DL (<200); CHOLESTEROL RISK RATIO 2.968 (<5); CREATININE FOR GFR 0.57 MG/DL (0.55-1.30); GLOMERULAR FILTRATION RATE > 60.0 (>51); GLUCOSE, FASTING 95 MG/DL (70-100); HDL CHOLESTEROL 64 MG/DL (>40); LDL CHOLESTEROL 109 MG/DL (<100); NON-HDL-C 126 MG/DL; POTASSIUM SERUM 4.3 MEQ/L (3.5-5.1); SODIUM LEVEL 139 MEQ/L (136-145); THYROID STIMULATING HORMONE 0.126 uIU/ML (0.358-3.740); TOTAL 25(OH) VITAMIN D 81.7 NG/ML (30.0-100.0); TOTAL PROTEIN 7.1 GM/DL (6.4-8.2); TRIGLYCERIDES LEVEL 87 MG/DL (<150)
[2021-01-01 15:03] LABS: HEMOGLOBIN A1c 5.5 %
== END ==
LOC: M LAB 12:42
PROVIDERS: ATTEND Family Medicine
DX: D64.9 Anemia, unspecified (principal); R53.83 Other fatigue

== ENCOUNTER 2021-01-29 19:20 | Emergency (ER) | payer OTHER ==
[~2021-01-29] VITALS: Ht 152.4 cm; Wt 83.0 kg
[2021-01-29 21:44] VITALS: BP 169/85
== END 2021-01-29 21:45 | disposition left against medical advice (07) ==
LOC: M ED 19:20
DX: Z53.21 Procedure and treatment not carried out due to patient leaving prior to being seen by health care provider (principal)

== ENCOUNTER → 2021-02-06 | Outpatient (CLI) | payer OTHER ==
--- NOTE | 2021-02-06 10:22 | REP ---
INDICATION: ABD PAIN, R/O GALL STONES COMPARISON: None. TECHNIQUE: Real time olsen scale ultrasound examination using curved array transducer. FINDINGS: Liver is hyperechoic and normal in size without evidence for focal hepatic lesions identified. Pancreas is incompletely evaluated due to interposed bowel gas. The there is a complex mixed echogenic masslike collection in the gallbladder fossa measuring roughly 7.1 x 7.3 x 6.9 cm with a more central reniform shape area of echogenicity measuring 4.6 x 3.0 x 3.2 cm. No normal appearing gallbladder is identified. Visualized distal aspect of the common bile duct measures 4.7 mm diameter. Right kidney is normal in reniform shape without hydronephrosis and measures 10.4 x 4.8 x 3.9 cm. No ascites in the visualized right upper quadrant. IMPRESSION: Concerning complex mass/collection in the gallbladder fossa cannot be further delineated by ultrasound. Mass versus phlegmon versus significantly abnormal gallbladder cannot be differentiated. Contrast-enhanced CT of the abdomen is recommended for further investigation. <Electronically signed by Gabriel Tracy > 02/06/21 [id number]
== END ==
LOC: M RAD 09:24
PROVIDERS: ATTEND Family Medicine
DX: R10.9 Unspecified abdominal pain (principal)

== ENCOUNTER → 2022-09-11 | Outpatient (CLI) | payer OTHER ==
[2022-09-11 13:06] LABS: HEMATOCRIT 33.6 % (36.0-47.0); HEMOGLOBIN 9.7 g/dl (12.0-15.5); MEAN CORPUSCULAR HEMOGLOBIN 18.5 pg (27.0-33.0); MEAN CORPUSCULAR HGB CONC 28.9 g/dl (32.0-36.5); PLATELET COUNT, AUTOMATED 533 10^3/uL (150-450); RED BLOOD COUNT 5.25 10^6/uL (4.00-5.40); WHITE BLOOD COUNT 9.2 10^3/uL (4.0-10.0)
[2022-09-11 13:29] LABS: ALBUMIN 3.7 G/DL (3.2-5.2); ALKALINE PHOSPHATASE 130 U/L (46-116); ALT/SGPT 38 U/L (7.0-40); AST/SGOT 28 U/L (<34); BILIRUBIN,TOTAL 0.2 MG/DL (0.3-1.2); BLOOD UREA NITROGEN 18 MG/DL (9-23); CALCIUM LEVEL 9.4 MG/DL (8.5-10.1); CARBON DIOXIDE LEVEL 28 MMOL/L (20-31); CHLORIDE LEVEL 103 MMOL/L (98-107); CHOLESTEROL LEVEL 167 MG/DL (<200); CHOLESTEROL RISK RATIO 2.68 (<5); CREATININE FOR GFR 0.62 MG/DL (0.55-1.30); GLOMERULAR FILTRATION RATE > 60.0 (>51); GLUCOSE, FASTING 95 MG/DL (60-100); HDL CHOLESTEROL 62.1 MG/DL (>40); LDL CHOLESTEROL 90.5 MG/DL (<100); NON-HDL-C 104.9 MG/DL; POTASSIUM SERUM 4.5 MMOL/L (3.5-5.1); SODIUM LEVEL 137 MMOL/L (136-145); TOTAL PROTEIN 7.3 G/DL (5.7-8.2); TRIGLYCERIDES LEVEL 72 MG/DL (<150)
[2022-09-11 13:31] LABS: THYROID STIMULATING HORMONE 0.616 uIU/ML (0.55-4.78)
[2022-09-11 13:32] LABS: TOTAL 25(OH) VITAMIN D 49.9 NG/ML (20.0-100.0)
[2022-09-11 13:46] LABS: HEMOGLOBIN A1c 5.7 % (4.0-6.0)
== END ==
LOC: M LAB 12:24
PROVIDERS: ATTEND Family Medicine
DX: D64.9 Anemia, unspecified (principal); E03.9 Hypothyroidism, unspecified; R53.83 Other fatigue

== ENCOUNTER → 2024-08-07 | Outpatient (CLI) | payer OTHER ==
[2024-08-07 11:48] LABS: HEMATOCRIT 49.6 % (36.0-47.0); HEMOGLOBIN 16.3 g/dl (12.0-15.5); MEAN CORPUSCULAR HEMOGLOBIN 29.5 pg (27.0-33.0); MEAN CORPUSCULAR HGB CONC 32.9 g/dl (32.0-36.5); MEAN CORPUSCULAR VOLUME 89.9 fl (80.0-96.0); PLATELET COUNT, AUTOMATED 336 10^3/uL (150-450); RED BLOOD COUNT 5.52 10^6/uL (4.00-5.40); WHITE BLOOD COUNT 7.7 10^3/uL (4.0-10.0)
[2024-08-07 11:58] LABS: HEMOGLOBIN A1c 5.2 % (4.0-6.0)
[2024-08-07 12:20] LABS: ALBUMIN 3.9 G/DL (3.2-5.2); ALKALINE PHOSPHATASE 108 U/L (35-104); ALT/SGPT 44 U/L (7.0-40); AST/SGOT 26 U/L (<34); BILIRUBIN,TOTAL 0.4 MG/DL (0.3-1.2); BLOOD UREA NITROGEN 15 MG/DL (9-23); CALCIUM LEVEL 9.7 MG/DL (8.5-10.1); CARBON DIOXIDE LEVEL 27 MMOL/L (20-31); CHLORIDE LEVEL 106 MMOL/L (98-107); CHOLESTEROL LEVEL 241 MG/DL (<200); CHOLESTEROL RISK RATIO 3.84 (<5); CREATININE FOR GFR 0.64 MG/DL (0.55-1.30); GLOMERULAR FILTRATION RATE > 60.0 (>51); GLUCOSE, FASTING 99 MG/DL (60-100); HDL CHOLESTEROL 62.6 MG/DL (>40); LDL CHOLESTEROL 155.2 MG/DL (<100); NON-HDL-C 178.4 MG/DL; POTASSIUM SERUM 4.2 MMOL/L (3.5-5.1); SODIUM LEVEL 140 MMOL/L (136-145); TOTAL PROTEIN 7.4 G/DL (5.7-8.2); TRIGLYCERIDES LEVEL 116 MG/DL (<150)
[2024-08-07 12:22] LABS: THYROID STIMULATING HORMONE 6.193 uIU/ML (0.55-4.78); TOTAL 25(OH) VITAMIN D 48.4 NG/ML (20.0-100.0)
== END ==
LOC: M RAD 10:08
PROVIDERS: ATTEND Family Medicine
DX: R53.83 Other fatigue (principal); I10 Essential (primary) hypertension; D64.9 Anemia, unspecified

== ENCOUNTER → 2025-03-13 | Outpatient (REF) | payer OTHER ==
[2025-03-13 13:37] LABS: BASO # 0.1 10^3/uL (0.0-0.2); BASO % 1.0 % (0.0-1.0); EOS # 0.1 10^3/uL (0.0-0.5); EOS % 1.0 % (0.0-3.0); LYMPH # 2.8 10^3/uL (1.5-5.0); LYMPH % 32.1 % (24.0-44.0); MONO # 0.5 10^3/uL (0.0-0.8); MONO % 5.8 % (2.0-8.0); NEUTROPHILS # 5.1 10^3/uL (1.5-8.5); NEUTROPHILS % 59.4 % (36.0-66.0); PLATELET COUNT, AUTOMATED 303 10^3/uL (150-450)
[2025-03-13 14:07] LABS: ALT/SGPT 37 U/L (7.0-40); AST/SGOT 29 U/L (<34); CALCIUM LEVEL 8.8 MG/DL (8.3-10.6); CARBON DIOXIDE LEVEL 29 MMOL/L (20-31); CHLORIDE LEVEL 101 MMOL/L (98-107); CREATININE FOR GFR 0.62 MG/DL (0.55-1.30); GLOMERULAR FILTRATION RATE > 90.0 (>45); POTASSIUM SERUM 4.2 MMOL/L (3.5-5.1); SODIUM LEVEL 139 MMOL/L (136-145); TOTAL 25(OH) VITAMIN D 57.2 NG/ML (20.0-100.0)
== END ==
LOC: M SFHCADAM 09:27
PROVIDERS: ATTEND Internal Medicine
DX: F90.8 Attention-deficit hyperactivity disorder, other type (principal); E03.8 Other specified hypothyroidism; E56.8 Deficiency of other vitamins